=== PATIENT | female | born 1945 | race Caucasian/White ===

== ENCOUNTER 2019-07-04 10:26 | Outpatient (CLI) | payer MEDICARE, SELFPAY ==
--- NOTE | 2019-07-04 10:56 | EST_ITS ---
Patient Info Name: Chely De Los Santos Age: 74 years : 1945 Gender: Female Ht: 60 in Wt: 130 lbs BSA: 1.59 m2 Exam Date: 07/04/2019 11:16 AM Exam Location: [facility] Patient Status: Outpatient Admit Date: 07/04/2019 Staff Ordering Physician: Bird Bartholomew PA-C Airport Operations Specialist: Toby Sarabia RDCS, RT Attending Provider: JULIAN REDDING Referring Physician: Puma EASLEY; Exercise Technologist: Toby Sarabia RDCS RT Exercise Physician: Julian Redding DO Exam Type: CA stress echo Study Info Indications R06.02 - Shortness of breath Treadmill exercise stress echocardiogram is performed. Summary 1. 1. Negative Chadwick exercise stress test for ischemic ST changes by ECG criteria. 2. 2. Reduced functional capacity, achieving 6 METs of workload. 3. 3. Appropriate HR response to exercise. 4. 4. Appropriate HR recovery at 1 minute post exercise. 5. 5. Baseline hypertension. 6. 6. Negative stress echocardiogram for ischemia by wall motion analysis. 7. 7. Patient informed of the above results. Stress Echo Findings Left Ventricle Appropriate increase in LV endocardial thickening with systole. Appropriate augmentation of contractility with systole. No wall motion abnormality. Left Ventricle Normal LV systolic function, no wall motion abnormality. Protocol: Chadwick Stress ECG Details Stage: REST Duration (min): 2 min : 4 sec Speed (mph): 0.0 Grade (%): 0 HR (bpm): 58 SBP (mmHg): 181 DBP (mmHg): 88 METS: --- Stage: REST Duration (min): 12 min : 22 sec Speed (mph): 0.0 Grade (%): 0 HR (bpm): 65 SBP (mmHg): 181 DBP (mmHg): 88 METS: --- Stage: STAGE 1 Duration (min): 1 min : 0 sec Speed (mph): 1.7 Grade (%): 10 HR (bpm): 84 SBP (mmHg): 181 DBP (mmHg): 88 METS: --- Stage: STAGE 1 Duration (min): 2 min : 0 sec Speed (mph): 1.7 Grade (%): 10 HR (bpm): 92 SBP (mmHg): 181 DBP (mmHg): 88 METS: --- Stage: STAGE 1 Duration (min): 3 min : 0 sec Speed (mph): 1.7 Grade (%): 10 HR (bpm): 104 SBP (mmHg): 192 DBP (mmHg): 64 METS: --- Stage: STAGE 2 Duration (min): 1 min : 0 sec Speed (mph): 2.5 Grade (%): 12 HR (bpm): 117 SBP (mmHg): 192 DBP (mmHg): 64 METS: --- Stage: STAGE 2 Duration (min): 1 min : 10 sec Speed (mph): 0.0 Grade (%): 0 HR (bpm): 123 SBP (mmHg): 192 DBP (mmHg): 64 METS: --- Stage: RECOVERY Duration (min): 0 min : 49 sec Speed (mph): 0.0 Grade (%): 0 HR (bpm): 109 SBP (mmHg): 217 DBP (mmHg): 68 METS: --- Stage: RECOVERY Duration (min): 1 min : 49 sec Speed (mph): 0.0 Grade (%): 0 HR (bpm): 96 SBP (mmHg): 217 DBP (mmHg): 68 METS: --- Stage: RECOVERY Duration (min): 2 min : 49 sec Speed (mph): 0.0 Grade (%): 0 HR (bpm): 84 SBP (mmHg): 217 DBP (mmHg): 68 METS: --- Stage: RECOVERY Duration (min): 3 min : 40 sec Spe
== END 2019-07-04 10:27 | disposition home or self-care (01) ==
PROVIDERS: PCP Family Medicine; Visit Provider Physician Assistant
DX: I49.9 Cardiac arrhythmia, unspecified (principal); R06.02 Shortness of breath
CPT/HCPCS: 93351

== ENCOUNTER 2020-11-04 15:14 | Emergency (ER) | payer MEDICARE, SELFPAY ==
--- NOTE | ~2020-11-04 | XR_ITS ---
EXAMINATION: XR chest 2V DATE: 11/04/2020 16:07 INDICATION: Bradycardia and heart palpitations TECHNIQUE: PA and lateral views of the chest are obtained. COMPARISON: 11/13/2016 FINDINGS: The lungs are free of acute opacities. There is no pleural effusion or pneumothorax. The ca rdiomediastinal silhouette is normal. There is moderate thoracic spondylosis. There are changes of po sterior thoracolumbar fusion. Calcified breast implants are noted. IMPRESSION: 1. No acute cardiopulmonary abnormality. Reviewed, dictated and finalized at location A.
[2020-11-04 15:38] VITALS: BP 148/123; PULSE 87; RESP 13; TEMP 36.8; O2SAT 98
--- NOTE | 2020-11-04 15:46 | ECG_ITS ---
Measurements Intervals Walsh Rate: 77 P: 83 OK: 137 QRS: 29 QRSD: 74 T: 64 QT: 334 QTc: 380 Interpretive Statements SINUS RHYTHM VENTRICULAR BIGEMINY CANNOT RULE OUT SEPTAL INFARCT, AGE INDETERMINATE BORDERLINE ST-T WAVE ABNORMALITY- HIGH LATERAL LEADS BASELINE ARTIFACT- I, III, AVR, AVL ABNORMAL ECG Electronically Signed On 11-04-2020 15:57:41 CDT by Armando Horowitz D.O.
[2020-11-04 15:53] LABS: Basophils Absolute Auto 0.1 K/mm3 (0.0-0.1); Basophils Percent Auto 0.9 % (0.2-1.2); Eosinophils Absolute Auto 0.2 K/mm3 (0-0.3); Eosinophils Percent Auto 2.4 % (0-4.4); Hematocrit 43.7 % (37.0-47.0); Hemoglobin 14.1 g/dL (12.0-15.0); Immature Granulocyte Absolute 0.01 K/mm3 (0.00-0.031); Immature Granulocyte Percent A 0.2 % (0-0.5); Lymphocytes Absolute Auto 1.63 K/mm3 (0.9-3.2); Lymphocytes Percent Auto 24.7 % (18.3-44.2); Mean Corpuscular HGB Conc 32.3 g/dl (32-36); Mean Corpuscular Hemoglobin 29.7 pg (26-34); Mean Corpuscular Volume 92.2 fl (80-100); Mean Platelet Volume 10.7 fl (7.4-10.4); Monocytes Absolute Auto 0.6 K/mm3 (0.1-0.6); Monocytes Percent Auto 9.3 % (2.6-8.5); Neutrophils Absolute Auto 4.1 K/mm3 (1.3-6.7); Neutrophils Percent Auto 62.5 % (45.5-73.1); Platelet Count Result 229 k/mm3 (150-375); Red Blood Count 4.74 M/mm3 (4.2-5.4); Red Cell Distribution Width 13.4 % (11.5-14.5); White Blood Count 6.6 K/mm3 (4.5-10.0)
[2020-11-04 16:03] LABS: Anion Gap 9 mmol/L (8-16); Blood Urea Nitrogen 12 mg/dL (7-17); Calcium 9.3 mg/dL (8.4-10.2); Carbon Dioxide 27 mmol/L (22-30); Chloride 106 mmol/L (98-107); Estimated CRCL calculation 33 ml/min; Estimated Glomerular Filt Rate > 60; Glucose 130 mg/dL (65-110); Magnesium 2.1 mg/dL (1.6-2.3); Potassium 4.2 mmol/L (3.4-5.0); Sodium 142 mmol/L (137-145)
--- NOTE | 2020-11-04 17:04 | ED.WEAKNESS ---
HPI - Weakness General Chief complaint: Weakness Stated complaint: low hr, fatigue Time Seen by Provider: 11/04/20 15:22 History of Present Illness HPI Narrative: Patient is a 75-year-old female who presents ER with reports of irregular heartbeat. Reports she was seen by her nurse for her psychiatrist who told her that her heart rate was really low. Another doctor who told her this the other day and they urged her to seek medical evaluation. She has no chest pain or shortness of breath. She has no dizziness lightheadedness. She reports she has had fatigue over the last year and has seen the PA of her primary care doctor in last couple months for this. Patient is without any other complaints at this time. Related Data Home Medications Medication Instructions Recorded Confirmed aripiprazole 10 mg tablet 10 mg PO DAILY 04/07/19 08/12/20 Allergies Allergy/AdvReac Type Severity Reaction Status Date / Time house dust Allergy Unknown sneezing Verified 11/04/20 15:44 mold Allergy Unknown sneezing Verified 11/04/20 15:44 morphine Allergy Unknown paranoid Verified 11/04/20 15:44 Sulfa (Sulfonamide Allergy Unknown Skin Verified 11/04/20 15:44 Antibiotics) Reaction Review of Systems Review of Systems: All systems reviewed & are unremarkable except as noted in HPI and below Constitutional: Constitutional: Denies chills, Reports fatigue and Denies fever(s) ENT: Denies nasal congestion and Denies sore throat Cardiovascular: Cardiovascular: Denies chest pain, Denies rapid heart rate, Denies radiating jaw, neck or arm pain and Reports slow heart rate Respiratory: Respiratory: Denies cough and Denies dyspnea Gastrointestinal: Gastrointestinal: Denies nausea and Denies vomiting Neurologic: Denies headache(s), Denies focal weakness and Denies numbness [facility] Past Medical History Medical History (Updated 11/04/20 @ 17:12 by Roc Ayala MD) Bigeminy Dyslipidemia Murmur, cardiac Unspecified episodic mood disorder Surgical History Surgical History (Updated 11/04/20 @ 17:08 by Roc Ayala MD) History of back surgery Family History Family History Father Diabetes mellitus Family history of elevated blood lipids, Onset Age: 72 Family history of cardiovascular disease, Onset Age: 72 Cerebrovascular accident Mother Patient's mother is in good health Sibling Family history of elevated blood lipids Cerebrovascular accident Grandparent Cerebrovascular accident Other Family history of gout Social History Social History Smoking status: Former smoker Second hand tobacco smoke exposure: Yes Smoking end date: 02/05/05 Alcohol intake: never Exam Narrative: GENERAL: Well-appearing, well-nourished, and in no acute distress. HEAD: Normocephalic, atraumatic. EYES: PERRL and EOMI. CHEST: Clear to auscultation. No respiratory distress. HEART: Regular rate and rhythm with occasional diarrhea. Murmur present consistent with aortic stenosis. Normal peripheral pulses. ABDOMEN: Soft, nontender, nondistended. EXTREMITIES: Normal range of motion. No edema. SKIN: Warm, dry, no rash. NEURO: Alert and oriented x3. PSYCH: Normal mood and affect. Course Course Emergency Course: Patient informed of results and given reassurance. Patient in bigeminy on her EKG. Recommend follow-up with her primary care physician. She may need repeat ultrasound since she has history of bicuspid aortic valve and has a murmur. Patient verbalized understanding this. Vital Signs Vital signs: Vital Signs Temperature 98.2 F 11/04/20 15:38 Pulse Rate 87 11/04/20 15:38 Respiratory Rate 11/04/20 15:38 Blood Pressure 148/123 H 11/04/20 15:38 Pulse Oximetry 98 11/04/20 15:38 Temperature 98.2 F 11/04/20 15:38 Pulse Rate 87 11/04/20 15:38 Respiratory Rate 11/04/20 15:38 Bloo
== END 2020-11-04 17:33 | disposition home or self-care (01) ==
PROVIDERS: Emergency Provider Emergency Medicine; PCP Family Medicine
DX: R00.8 Other abnormalities of heart beat (principal); E78.5 Hyperlipidemia, unspecified; F39 Unspecified mood [affective] disorder; Z87.891 Personal history of nicotine dependence; R94.31 Abnormal electrocardiogram [ECG] [EKG]
CPT/HCPCS: 36415; 71046; 80048; 83735; 85025; 93005; 99283

== ENCOUNTER 2020-12-04 13:40 | Emergency (ER) | payer MEDICARE, SELFPAY ==
--- NOTE | ~2020-12-04 | XR_ITS ---
EXAMINATION: XR ribs RT 2V w CXR 2V EXAM DATE: 12/04/2020 14:14 INDICATION: fell 2 days, posterior lower rib pain w/e bruising, hit wall. TECHNIQUE: Frontal projection of the upper right ribs, frontal projection of the lower right ribs, ob lique projection of the right ribs, frontal and lateral chest x-ray(s) for interpretation. Comparison is made to prior examination from 11/04/2020. FINDINGS: There is acute right 8th rib fracture with mild displacement posteriorly and another fractu re of this rib laterally which is completely displaced. The 9th rib is also fractured and displaced p osteriorly. Development of small to moderate right pleural effusion. Adjacent subsegmental atelectasi s. Breast implants with capsular retraction. Cardiomediastinal silhouette is normal. Thoracolumbar Nelson rrington rods, scoliosis. IMPRESSION: Acute right 8th, 9th rib fractures. Small to moderate right pleural effusion, adjacent at electasis. Reviewed, dictated and finalized at location A. IMPRESSION: Acute right 8th, 9th rib fractures. Small to moderate right pleural effusion, adjacent atelectasis.
[2020-12-04 13:41] VITALS: BP 188/108; PULSE 100; RESP 16; TEMP 36.6; O2SAT 97
--- NOTE | 2020-12-04 15:03 | ED.FALL ---
HPI - Fall General Chief Complaint: Fall Stated Complaint: FALL/RIB PAIN Time Seen by Provider: 12/04/20 13:53 Source: patient History of Present Illness HPI Narrative: Patient presents with right-sided rib pain. Patient reports she was drinking slipped and fell onto her right side striking a bedpost. She tried to manage her symptoms at home but continued to have right-sided posterior rib pain. Pain is sharp, constant, worse with moving and deep inspiration, does not radiate. She denies striking her head she denies any use of blood thinners. Related Data Home Medications Medication Instructions Recorded Confirmed aripiprazole 10 mg tablet 10 mg PO DAILY 11/16/20 11/16/20 Allergies Allergy/AdvReac Type Severity Reaction Status Date / Time house dust Allergy Unknown sneezing Verified 12/04/20 13:40 mold Allergy Unknown sneezing Verified 12/04/20 13:40 morphine Allergy Unknown paranoid Verified 12/04/20 13:40 Sulfa (Sulfonamide Allergy Unknown Skin Verified 12/04/20 13:40 Antibiotics) Reaction Review of Systems Review of Systems: CONSTITUTIONAL: Denies fever, chills, or sweats. EYES: Denies visual changes, redness, or discharge. ENT: Denies rhinorrhea, congestion, sore throat, or otalgia. CARDIOVASCULAR: Denies chest pain, palpitations, or edema. RESPIRATORY: Denies cough or dyspnea. GASTROINTESTINAL: Denies abdominal pain, nausea, vomiting, or diarrhea. GENITOURINARY: Denies dysuria or hematuria. SKIN: Denies rash or itching. MUSCULOSKELETAL: Denies joint pain, or myalgia. NEUROLOGIC: Denies headache, numbness, dizziness, or weakness. PSYCHIATRIC: Denies anxiety or depression. All systems reviewed & are unremarkable except as noted in HPI and below [facility] Past Medical History Medical History Bigeminy Dyslipidemia Murmur, cardiac Unspecified episodic mood disorder Surgical History Surgical History History of back surgery Family History Family History Father Diabetes mellitus Family history of elevated blood lipids, Onset Age: 72 Family history of cardiovascular disease, Onset Age: 72 Cerebrovascular accident Mother Patient's mother is in good health Sibling Family history of elevated blood lipids Cerebrovascular accident Grandparent Cerebrovascular accident Other Family history of gout Social History Social History Second hand tobacco smoke exposure: Yes Smoking end date: 02/05/05 Alcohol intake: never Substance use: current Substance use type: marijuana Gender identity (if verbalized by the patient): Female Exam Narrative: GENERAL: Well-appearing, well-nourished, and in no acute distress. HEAD: Normocephalic, atraumatic. EYES: PERRLA and EOMI. ENT: Nares clear, no rhinorrhea or epistaxis. Mucous membranes moist. NECK: Supple. No masses. No JVD CHEST: Clear to auscultation. No respiratory distress. No wheezes rales or rhonchi HEART: Regular rate and rhythm. No murmur heard. Normal peripheral pulses. BACK: Diffuse lower right-sided posterior tenderness in the thoracic area there is some ecchymosis and superficial abrasions in the area EXTREMITIES: Normal range of motion. No edema. SKIN: Warm, dry, no rash. NEURO: No focal deficits. Alert and oriented x3. PSYCH: Normal mood and affect. Course Reevaluation(s) Reevaluation #1: Imaging results reviewed with patient discussed importance of breathing exercises. Date: 12/04/20 Time: 15:05 Vital Signs Vital signs: Vital Signs Temperature 36.6 C 12/04/20 13:41 Pulse Rate 100 12/04/20 13:41 Respiratory Rate 16 12/04/20 13:41 Blood Pressure 188/108 H 12/04/20 13:41 Pulse Oximetry 97 12/04/20 13:41 Temperature 36.6 C 12/04/20 13:41 Pulse Rate 100 12/04/20 15:19 Respiratory Rat
[2020-12-04 15:19] VITALS: PULSE 100; RESP 16; O2SAT 97
== END 2020-12-04 15:20 | disposition home or self-care (01) ==
PROVIDERS: Emergency Provider Emergency Medicine; PCP Family Medicine
DX: S22.41XA Multiple fractures of ribs, right side, initial encounter for closed fracture (principal); E78.5 Hyperlipidemia, unspecified; Z87.891 Personal history of nicotine dependence; W01.190A Fall on same level from slipping, tripping and stumbling with subsequent striking against furniture, initial encounter
CPT/HCPCS: 71046; 71100; 99283

== ENCOUNTER 2020-12-28 13:39 | Outpatient (CLI) | payer MEDICARE, SELFPAY ==
--- NOTE | ~2020-12-28 | XR_ITS ---
XR chest 2V 12/28/2020 13:59 Indication: Rib fractures. Dyspnea. Procedure: PA and lateral views of the chest Comparison: 12/04/2020 Findings: Moderate right pleural effusion. Right basilar atelectasis. There are partially calcified b reast implants. Rib fractures not appreciated on the current study. No pneumothorax. No acute osseous abnormality. There are Narayan rods overlying the thoracic and lumbar spine. Impression: 1: Moderate right pleural effusion with underlying compressive atelectasis. No pneumothorax. Reviewed, dictated and finalized at location A. 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 No pneumothorax.
== END 2020-12-28 13:40 | disposition home or self-care (01) ==
LOC: ANHIMG 13:47
PROVIDERS: PCP Family Medicine; Visit Provider Physician Assistant
DX: S22.41XD Multiple fractures of ribs, right side, subsequent encounter for fracture with routine healing (principal); X58.XXXD Exposure to other specified factors, subsequent encounter; J90 Pleural effusion, not elsewhere classified
CPT/HCPCS: 71046

== ENCOUNTER 2021-01-31 13:55 | Outpatient (CLI) | payer MEDICARE, SELFPAY ==
--- NOTE | 2021-01-31 14:07 | ECHO_ITS ---
Patient Info Name: Chely De Los Santos Age: 75 years : 1945 Gender: Female Ht: 60 in Wt: 125 lbs BSA: 1.56 m2 HR: 66 bpm BP: 168 / 80 mmHg Heart Rhythm: Sinus Rhythm Technical Quality: Fair Exam Date: 01/31/2021 2:12 PM Exam Location: [facility] Patient Status: Outpatient Admit Date: 01/31/2021 Staff Ordering Physician: Bird Bartholomew PA-C Extension Course Coordinator: Bethanie Chun RDCS Attending Provider: Bird Bartholomew PA-C Referring Physician: Puma EASLEY; Exam Type: CA echo dop color flow w con Study Info Indications - Cardiac murmur, unspecified Complete two-dimensional, color flow and Doppler transthoracic echocardiogram is performed. Summary 1. Complete two-dimensional, color flow and Doppler transthoracic echocardiogram is performed. 2. Left ventricular chamber dimension is normal. 3. Ventricular septum is sigmoid shaped. No LVOT obstruction. 4. Left ventricular systolic function is normal, estimated at 60-65%. 5. There is mildly increased left ventricular wall thickness. 6. The left ventricular diastolic function is grade I diastolic dysfunction. 7. E/e' 14 is mildly elevated. 8. Left atrial chamber dimension is mildly enlarged. 9. There is severe aortic valve sclerosis. 10. There is severe aortic valve stenosis with a peak velocity of 324.09 cm/s, mean gradient of 22 mmHg, and aortic valve area of 0.85 cm2. 11. There is mild aortic valve regurgitation. 12. The mitral valve has mildly calcified annulus. 13. No pulmonary hypertension, estimated pulmonary arterial systolic pressure is 21 mmHg. Left Ventricle E/e' 14 is mildly elevated. Ventricular septum is sigmoid shaped. No LVOT obstruction. Left ventricular chamber dimension is normal. Left ventricular systolic function is normal, estimated at 60-65%. There is mildly increased left ventricular wall thickness. The left ventricular diastolic function is grade I diastolic dysfunction. Right Ventricle Right ventricular systolic function is normal and with a normal TAPSE 2.1 cm. Right ventricular chamber dimension is normal. Left Atria Left atrial chamber dimension is mildly enlarged. Right Atria Right atrial chamber dimension is normal. Aortic Valve The aortic valve is probable trileaflet. There is severe aortic valve sclerosis. There is severe aortic valve stenosis with a peak velocity of 324.09 cm/s, mean gradient of 22 mmHg, and aortic valve area of 0.85 cm2. There is mild aortic valve regurgitation. Pulmonic Valve There is no pulmonic regurgitation. Mitral Valve The mitral valve has mildly calcified annulus. There is no mitral valve stenosis. There is no mitral valve regurgitation. Tricuspid Valve There is no tricuspid valve regurgitation. No pulmonary hypertension, estimated pulmonary arterial systolic pressure is 21 mmHg. Pericardium/Pleural There is no pericardial effusion. Inferior Vena Cava Normal inferior vena cava with >50% collapse upon inspiration consistent with normal right atrial pressure, 5 mmHg. Aorta The aortic root size at the sinus of Valsalva is normal. Left Ventricular Outflow Tract Name Value Normal LVOT 2D LVOT Diameter 2.03 cm LVOT Doppler
== END 2021-01-31 13:56 | disposition home or self-care (01) ==
PROVIDERS: PCP Family Medicine; Visit Provider Physician Assistant
DX: R01.1 Cardiac murmur, unspecified (principal); I35.2 Nonrheumatic aortic (valve) stenosis with insufficiency
CPT/HCPCS: C8929

== ENCOUNTER 2021-03-07 13:27 | Outpatient (CLI) | payer MEDICARE, SELFPAY ==
--- NOTE | ~2021-03-07 | XR_ITS ---
EXAMINATION: XR ribs RT 2V w CXR 2V INDICATION: History of right pleural effusion post rib fracture TECHNIQUE: PA and lateral views of the chest and 3 views of the right ribs were obtained. COMPARISON: 12/28/2020 FINDINGS: There is no pleural effusion or pneumothorax. The lungs are free of acute opacities. The ca rdiomediastinal silhouette is normal. Healing right-sided rib fractures are noted. There are surgical changes in the thoracic and lumbar spine. Bilateral breast implants are noted. IMPRESSION: 1. Resolved right pleural effusion. No acute cardiopulmonary abnormality. 2. Healing right rib fractures. Reviewed, dictated and finalized at location B. 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
== END 2021-03-07 13:28 | disposition home or self-care (01) ==
LOC: ANHIMG 13:34
PROVIDERS: PCP Family Medicine; Visit Provider Physician Assistant
DX: S22.41XD Multiple fractures of ribs, right side, subsequent encounter for fracture with routine healing (principal)
CPT/HCPCS: 71046; 71100

== ENCOUNTER 2021-06-08 15:25 | Outpatient (CLI) | payer MEDICARE, SELFPAY ==
--- NOTE | ~2021-06-08 | US_ITS ---
EXAMINATION: US carotid duplex BI DATE: 06/08/2021 16:45 INDICATION: Severe aortic stenosis TECHNIQUE: Grayscale, color Doppler, and pulsed Doppler images of the cervical carotid arteries were obtained. The degree of vessel stenosis is placed in one of the following categories: normal, <50%, 5 0-69%, >=70% but less than near-occlusion, near-occlusion, or total occlusion. Note that percent sten osis relative to normal distal artery lumen diameter is indirectly measured from velocity measurement s as described by Jose Daniel, et al. Radiology 2003; 229:340-346. COMPARISON: None. FINDINGS: RIGHT: The right common carotid artery (CCA) peak systolic velocity (PSV) is 76 cm/s. The right internal car otid artery (ICA) PSV is 98 cm/s. The right ICA end-diastolic velocity (EDV) is 26 cm/s. The right IC A/CCA PSV ratio is 1.3. Grayscale and color Doppler images yield an estimate of <50% diameter reducti on from plaque in the ICA. The external carotid artery (ECA) PSV is 167 cm/s. There is antegrade flow in the right vertebral artery. LEFT: The left CCA PSV is 106 cm/s. The left ICA PSV is 133 cm/s. The left ICA EDV is 24 cm/s. The left ICA /CCA PSV ratio is 1.3. Grayscale and color Doppler images yield an estimate of 50-69% diameter reduct ion from plaque in the ICA. The ECA PSV is 143 cm/s. There is antegrade flow in the left vertebral ar darren. IMPRESSION: 1. <50% stenosis in the right internal carotid artery. 2. 50-69% stenosis in the left internal carotid artery. Reviewed, dictated and finalized at location A.
== END 2021-06-08 15:26 | disposition home or self-care (01) ==
PROVIDERS: PCP Family Medicine; Visit Provider Internal Medicine Cardiovascular Disease
DX: Z01.810 Encounter for preprocedural cardiovascular examination (principal); I35.0 Nonrheumatic aortic (valve) stenosis; E78.2 Mixed hyperlipidemia; G45.9 Transient cerebral ischemic attack, unspecified; I65.23 Occlusion and stenosis of bilateral carotid arteries
CPT/HCPCS: 93880

== ENCOUNTER 2022-01-18 14:39 | Outpatient (CLI) | payer MEDICARE, SELFPAY ==
[2022-01-18 23:44] LABS: Kit Draw Collected
== END 2022-01-18 14:40 | disposition home or self-care (01) ==
LOC: ANHGOSHLAB 14:41
PROVIDERS: PCP Family Medicine; Visit Provider Family Medicine
DX: M81.0 Age-related osteoporosis without current pathological fracture (principal); Z78.0 Asymptomatic menopausal state; Z11.59 Encounter for screening for other viral diseases
CPT/HCPCS: 36415

== ENCOUNTER → 2022-01-18 15:03 | Outpatient (CLI) | payer MEDICARE, SELFPAY ==
--- NOTE | ~2022-01-18 | XR_ITS ---
Right Knee Technique: AP, lateral, not, and sunrise views were obtained. Clinical History: Pain Findings: No fracture or dislocation is seen. There is minimal tricompartmental spurring, and probabl e mild medial compartment narrowing. Soft tissues are unremarkable. No joint effusion is seen. Impression: Mild degenerative change, as detailed above. No fracture or dislocation. Reviewed, dictated and finalized at location [] DIRECTOR/FINANCE Impression: Mild degenerative change, as detailed above. No fracture or dislocation.
== END ==
PROVIDERS: PCP Family Medicine; Visit Provider Family Medicine
DX: M25.561 Pain in right knee (principal)
CPT/HCPCS: 73564

== ENCOUNTER 2022-02-03 14:43 | Outpatient (CLI) | payer MEDICARE, SELFPAY ==
--- NOTE | ~2022-02-03 | DEXA_ITS ---
Bone Density Report Name: MELISSA SALAZAR Age: 76 Sex: Female Ethnicity: White Date of : 1945 Indication: osteopenia; monitoring treatment; height loss; prior fracture; postmenopausal Referring Provider: ALPHONSE RIVERA Study: Bone densitometry was performed. Exam Date: February 03, 2022 Accession number: [id number] Bone Density: Region BMD T-score Z-score Classification Femoral Neck (Left) 0.567 -2.5 -0.3 Osteoporosis Total Hip (Left) 0.642 -2.5 -0.5 Osteoporosis Femoral Neck (Right) 0.626 -2.0 0.2 Osteopenia Total Hip (Right) 0.677 -2.2 -0.2 Osteopenia Total Hip Mean 0.660 -2.4 -0.4 Osteopenia World Health Organization criteria for BMD impression classify patients as: Normal (T-score at or above -1.0), Osteopenia (T-score between -1.0 and -2.5), or Osteoporosis (T-score at or below -2.5). 10-year Fracture Risk: FRAX not reported because: Some T-score for Spine Total or Hip Total or Femoral Neck at or below -2.5 Treated for osteoporosis Previous Exams: Region Exam Age BMD T-score BMD Change BMD Change Date g/cm2 vs Baseline vs Previous Total Hip(Left) 02/03/2022 76 0.642 -2.5 -0.177 (-21.6% -0.083 (-11.5% 10/04/2016 71 0.725 -1.8 -0.094 (-11.4% -0.094 (-11.4% 07/10/2012 67 0.819 -1.0 Total Hip(Right) 02/03/2022 76 0.677 -2.2 -0.139 (-17.1% -0.102 (-13.0% 10/04/2016 71 0.779 -1.3 -0.038 (-4.6%) -0.038 (-4.6%) 07/10/2012 67 0.817 -1.0 *Denotes significance at 95% confidence level, LSC for Total Hip = 0.027 g/cm2 # Denotes dissimilar scan types or analysis methods Clinical Information Provided by Patient: Has had a low trauma fracture Is being treated for osteoporosis Patient maximum height was 62.5 Menopause Age: 3 No regular weight bearing exercise Does not regularly consume dairy products Drinks caffeinated beverages Onset of menses at age 11 Number of children 2 Impression: The patient has established osteoporosis, based on the Left Total Hip T-score and the existence of a prior fracture. The patient has risk factors, including: previous fracture. The BMD for the Total Hip(Left) decreased, changing by -11.5% since the last DXA exam. The BMD for the Total Hip(Right) decreased, changing by -13.0% since the last DXA exam. Discussion: SIGNIFICANT BONE LOSS OBSERVED. Adherence to therapy (including calcium and vitamin D intake) should be assessed. If compliance is not a factor, review management and exclusion of secondary causes of bone loss. It
== END 2022-02-03 14:44 | disposition home or self-care (01) ==
LOC: ANHIMG 14:44
PROVIDERS: PCP Family Medicine; Visit Provider Family Medicine
DX: M81.0 Age-related osteoporosis without current pathological fracture (principal); M85.851 Other specified disorders of bone density and structure, right thigh
CPT/HCPCS: 77080

== ENCOUNTER → 2022-12-05 11:31 | Outpatient (CLI) | payer MEDICARE, SELFPAY ==
--- NOTE | ~2022-12-05 | XR_ITS ---
XR hip RT 2V w AP pelvis DATE: 12/05/2022 11:43 INDICATION: Right hip pain. No injury. TECHNIQUE: AP pelvis. AP and lateral views of right hip. COMPARISON: None FINDINGS: Lumbar pedicle screws and rods and interbody spinal fusion at L4-5. Transitional fifth lumb ar vertebra with sacralization pseudoarthrosis on the right. Degenerative changes at the sacroiliac j oints. No pelvic fracture or bone destruction. There is osteopenia. Mild bilateral hip osteoarthritis, greater on the left. No fracture or dislocation, avascular necrosis or bone destruction of the right hip is detected. Osteopenia. 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
== END ==
PROVIDERS: PCP Family Medicine; Visit Provider Family Medicine
DX: M16.0 Bilateral primary osteoarthritis of hip (principal); M46.1 Sacroiliitis, not elsewhere classified; M43.26 Fusion of spine, lumbar region; M43.27 Fusion of spine, lumbosacral region
CPT/HCPCS: 73502

== ENCOUNTER 2023-03-09 14:19 | Outpatient (CLI) | payer MEDICARE, SELFPAY ==
--- NOTE | ~2023-03-09 | US_ITS ---
EXAMINATION: US carotid duplex BI DATE: 03/09/2023 15:21 INDICATION: Left carotid artery stenosis TECHNIQUE: Grayscale, color Doppler, and pulsed Doppler images of the cervical carotid arteries were obtained. The degree of vessel stenosis is placed in one of the following categories: normal, <50%, 5 0-69%, >=70% but less than near-occlusion, near-occlusion, or total occlusion. Note that percent sten osis relative to normal distal artery lumen diameter is indirectly measured from velocity measurement s as described by Jose Daniel, et al. Radiology 2003; 229:340-346. COMPARISON: None. FINDINGS: RIGHT: The right common carotid artery (CCA) peak systolic velocity (PSV) is 88 cm/s. The right internal car otid artery (ICA) PSV is 75 cm/s. The right ICA end-diastolic velocity (EDV) is 21 cm/s. The right IC A/CCA PSV ratio is 0.9. Grayscale and color Doppler images yield an estimate of <50% diameter reducti on from plaque in the ICA. The external carotid artery (ECA) PSV is 97 cm/s. There is antegrade flow in the right vertebral artery. LEFT: The left CCA PSV is 101 cm/s. The left ICA PSV is 135 cm/s. The left ICA EDV is 31 cm/s. The left ICA /CCA PSV ratio is 1.3. Grayscale and color Doppler images yield an estimate of 50-69% diameter reduct ion from plaque in the ICA. The ECA PSV is 93 cm/s. There is antegrade flow in the left vertebral art stevan. IMPRESSION: 1. <50% stenosis in the right internal carotid artery. 2. 50-69% stenosis in the left internal carotid artery. 3. Cardiac arrhythmia is present. Reviewed, dictated and finalized at location A. 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
== END 2023-03-09 14:20 | disposition home or self-care (01) ==
LOC: ANHIMG 14:20
PROVIDERS: PCP Family Medicine; Visit Provider Internal Medicine Cardiovascular Disease
DX: I65.23 Occlusion and stenosis of bilateral carotid arteries (principal); I49.9 Cardiac arrhythmia, unspecified; Z86.73 Personal history of transient ischemic attack (TIA), and cerebral infarction without residual deficits
CPT/HCPCS: 93880

== ENCOUNTER 2024-05-22 14:53 | Emergency (ER) | payer MEDICARE, SELFPAY ==
--- NOTE | ~2024-05-22 | CT_ITS ---
CT brain wo con Ordering provider: Martha Quarles History: 78 years Female with . head injury . Comparison: November 13, 2016 Technique: CT of the head without contrast. Radiation reduction technique utilized.The dose-length pr oduct was 605.33 mGy-cm. FINDINGS: BRAIN PARENCHYMA AND CSF SPACES: Mild leukoaraiosis and diffuse cortical atrophy. Mild atheromatous d isease. No midline shift, mass effect or hemorrhage. The brain parenchyma and CSF spaces are otherwi se normal. VISUALIZED PARANASAL SINUSES: Bilateral ethmoid sinus disease. MASTOIDS: Well aerated. BONES: The bones appear intact. SOFT TISSUES: Visualized nasopharynx is normal. Superficial soft tissues are normal. IMPRESSION: No acute intracranial findings. Reviewed, dictated and finalized at location A.
--- NOTE | ~2024-05-22 | XR_ITS ---
XR chest 1V Ordering provider: Martha Quarles History: 78 years Female with . dizzy . Comparison: March 07, 2021 FINDINGS: MEDIASTINUM: The cardiac silhouette is not enlarged. LUNGS: No infiltrates, effusions or pneumothorax. OTHER: No free air under the diaphragm. Postoperative changes in the spine. Valve prosthesis is seen in the heart. S-shaped scoliosis bilateral breast implants. IMPRESSION: No acute cardiopulmonary pathology. Reviewed, dictated and finalized at location A.
[2024-05-22 14:55] VITALS: BP 150/43; PULSE 112; RESP 16; TEMP 36.2; O2SAT 96
--- OUTSIDE RECORDS SUMMARY | 2024-05-22 14:56 | XMS_ITS | Clinical Summary ---
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
--- OUTSIDE RECORDS SUMMARY | 2024-05-22 14:56 | XMS_ITS | Clinical Summary ---
Author Organization [facility] [address] Address [address] [place] [address] Care Team Providers Care Forensic Toxicologist Name Role Phone Elsy Brumfield MD Primary Care Provider + Allergies Active Allergy Reactions Criticality Noted Date Comments Morphine Other (See comments) Medium 09/16/2014 paranoid Sulfa (Sulfonamide Antibiotics) Swelling Medium 05/02/2021 Medications atorvastatin (LIPITOR) 40 mg tablet Take 2 tablets (80 mg total) by mouth daily 02/28/2021 Active venlafaxine (EFFEXOR) 75 mg tablet Take 1 tablet (75 mg total) by mouth 2 (two) times a day 05/06/2021 Active ARIPiprazole (ABILIFY) 5 mg tablet Take 1 tablet (5 mg total) by mouth daily Active aspirin 81 mg chewable tablet TAKE 1 TABLET BY MOUTH EVERY DAY 90 tablet 3 09/04/2022 Active cholecalciferol (VITAMIN D-3) 50,000 unit capsule TAKE 1 CAPSULE BY MOUTH WEEKLY 12/04/2022 Active ibandronate (BONIVA) 150 mg tablet TAKE 1 TABLET (150MG) BY MOUTH MONTHLY 12/16/2022 Active losartan (COZAAR) 25 mg tablet Take 1 tablet (25 mg total) by mouth 2 (two) times a day 180 tablet 3 09/21/2023 Active Active Problems Problem Noted Date Diagnosed Date Essential hypertension 03/10/2024 Status post transcatheter ao rtic valve replacement (TAVR) using bioprosthesis 08/29/2021 Stenosis of left carotid artery 08/29/2021 Mixed hyperlipidemia 05/02/2021 Resolved Problems Problem Noted Date Diagnosed Date Resolved Date Nonrheumatic aortic valve stenosis 07/19/2021 03/10/2024 Severe aortic stenosis 05/02/202108/29 Overview (05/02/2021): Added automatically from request for surgery [id number] PVC's (premature ventricular contractions) 05/02/2021 03/10/2024 Encounters Date Type Department Care Team Description 03/10/2024 11:30 AM INVESTOR RELATIONS ASSOCIATE Office Visit [facility] [address] [place] [address] Rivas Paiz MD Mixed hyperlipidemia (Primary Dx); Status post transcatheter aortic valve replacement (TAVR) using bioprosthesis; Stenosis of left carotid artery; Essential hypertension from Last 3 Months Surgical History Surgery Date Site/Laterality Comments TONSILLECTOMY 02/05/1945 - 02/04/1946 SPINAL FUSION 02/05/1957 - 02/04/1958 age 32 & age 48 TRANSUMBILICAL AUGMENTATION MAMMAPLASTY 02/05/1975 - 02/05/1976 KNEE SURGERY 02/05/1989 - 02/04/1990 arthroscopy FRACTURE SURGERY Right ankle CATARACT EXTRACTION Bilateral CARDIAC CATHETERIZATION Medical History Medical History Date Comments Severe aortic stenosis Hypertension Hyperlipidemia Murmur Anxiety and depression Arthritis TIA (transient ischemic attack) Dyspnea on exertion Rib fractures right Family History Medical History Relation Name Comments Heart attack Brother 1 Heart disease Brother 1 Family history of cardiac disorder - (Added by TW Conv) Stroke Brother 2 Family history of cerebrovascular accident - (Added by TW Conv) Arthritis Father Family history of arthritis - (Added by TW Conv) Diabetes Father Family history of diabetes mellitus - (Added by TW Conv) Gout Father Family history of gout - (Added by TW Conv) Heart disease Father Family history of cardiac disorder - (Added by TW Conv) Stroke Father Family history of cerebrovascular accident - (Added by TW Conv) Heart disease Mother Family history of cardiac disorder - (Added by TW Conv) Stroke Mother Family history of cerebrovascular accident - (Added by TW Conv) Relation Name Status Comments Brother 1 Brother 2 Father (Age 71) Mother (Age 98) Social History Tobacco Use Types Packs/Day Years Used Date Smoking Tobacco: Former Cigarettes 1 967 - 2006 Smokeless Tobacco: Never Comments:Quit 15 years ago AUDIT-C Answer Date Recorded Q1: How often do you have a drink containing alcohol? Monthly or less 07/12/2021 Q2: How many drinks containi ng alcohol do you have on a typical day when you are drinking? 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 Gender Identity Not on file Sexual Orientation Not on file Obstetrics History Last Filed Vital Signs Vital Sign Reading Time Taken Comments Blood Pressure 139/82 03/10/2024 11:38 AM INVESTOR RELATIONS ASSOCIATE Pulse 52 03/10/2024 11:38 AM INVESTOR RELATIONS ASSOCIATE Temperature 37.3 C (99.2 F) 07/20/2021 12:05 PM CDT Respiratory Rate 18 08/29/2021 9:06 AM CDT Oxygen Saturation 98% 03/10/2024 11:38 AM INVESTOR RELATIONS ASSOCIATE Inhaled Oxygen Concentration - - Weight 55.8 kg (123 lb) 03/10/2024 11:38 AM INVESTOR RELATIONS ASSOCIATE Height 152.4 cm (5') 03/10/2024 11:38 AM INVESTOR RELATIONS ASSOCIATE Body Mass Index 24.02 03/10/2024 11:38 AM INVESTOR RELATIONS ASSOCIATE Plan of Treatment Health Maintenance Due Date Last Done Comments Depression Screening 1945 Osteoporosis Screening-Bone Density Scan 1945 DTaP/Tdap/Td Vaccine (1 - Tdap) 06/28/1954 Hepatitis B Screening 06/28/1961 Pneumococcal vaccine 65+ (1 of 1 - PCV) 06/28/1993 Zoster Vaccine (1 of 2) 06/28/1993 Well Visit 65+ 06/28/2008 Fall Risk Assessment 07/20/2022 07/20/2021 Covid-19 Vaccine ( - season) 2023 01/19/2021, 04/15/2020, 03/18/2020 Influenza Vaccine (#1) 2023 03/21/2021, 2020 Medical Devices Implanted Type Area Hospice Coordinator Device Identifier Shelf Expiration Date Model / Serial / Lot [employer] Vascular Device Clsr Perclose Prostyle Sut-Mediatd Closure-Repair Sys 94634-57 - [id number] Implanted:Qty: 1 on 07/19/2021 by Rivas Paiz MD at [facility] [employer] 1 2772-04 / / [employer] V[employer] Device Clsr Perclose Prostyle Sut-Mediatd Closure-Repair Sys [id number] - [id number] Implanted:Qty: 1 on 07/19/2021 by Rivas Paiz MD at [facility] [employer] 1 2772-04 / / [employer] Valve 23mm Aortic Marty 3 Commander Wilkerson Transcatheter Ultra Low Profile [id number] - [id number] - [id number] Implanted:Qty: 1 on 07/19/2021 by Rivas Paiz MD at [facility] [employer] 02/28/2024 [id number] / [id number] / Angio-Seal Vip 6fr Closere Device [id number] - [id number] Implanted:Qty: 1 on 07/19/2021 by Rivas Paiz MD at [facility] [employer] 03/07/2022 [id number] / / [id number] Insurance [employer] MEDICARE [facility] Address: [facility] [address] [place] [address] [facility] MEDICARE ADVANTAGE [facility] MEDICARE Address: [address] [address] [place] [address] [facility] Address: [address] [place] [address] Advance Directives For more information, please contact: [phone] * Full Code (Latest Code Status on File) Date Activated Date Inactivated Comments 05/25/2021 12:30 PM 05/25/2021 9:55 PM Care Teams Forensic Toxicologist Relationship Specialty Start Date End Date Elsy Brumfield MD PCP - General Family Medicine 02/27/22
--- OUTSIDE RECORDS SUMMARY | 2024-05-22 14:56 | XMS_ITS | Patient Health Record ---
Author Organization [facility] [employer] Address [address] [place] [address] Care Team Providers Care Straddle Truck Driver Name Role Phone ALPHONSE RIVERA MD Primary Care Provider Yoanna Parul Meyer Unavailable [phone] Migration, Provider Unavailable Unavailable Allergies Allergen (clinical drug ingredient) Drug/Non Drug Allergy documented on EMR Reaction Allergy Type Onset Date Status Substance with sulfonamide structure and antibacterial mechanism of action (substance) SULFA (SULFONAMIDE ANTIBIOTICS) (uncoded) Unknown Allergy 03/28/2023 Active morphine Morphine Unknown Drug Allergy 03/28/2023 Active Reason For Referral No Information Medications Medication SIG (Take, Route, Frequency, Duration) Notes Start Date End Date Status Venlafaxine HCl 75 MG TAKE 1 TABLET BY M OUTH TWICE DAILY 90 DAYS for 90 days Active Ibandronate Sodium 150 MG TAKE 1 TABLET BY MOUTH MONTHLY Oral for 90 Days Active ARIPiprazole 5 MG TAKE 1 TABLET BY ASHLEE TH EVERY DAY FOR 90 DAYS for 90 days Active Atorvastatin Calcium 40 MG TAKE 1 TABLET BY MOUTH EVERY DAY Oral for 90 Days Active Vitamin D3 1.25 MG (76254 UT) TAKE 1 CAPSULE BY MOUTH WEEKLY Oral for 84 Days Active Losartan Potassium 25 MG TAKE 1 TABLET ( 25 MG TOTAL) BY MOUTH DAILY. Oral for 90 Days Active Immunizations Vaccine Route Administration Date Status Comme nts Influenza, unspecified formulation Unknown 01/19/2021 A dministered Moderna Covid-19 Vaccine 1st dose Unknown 03/18/2020 Ad ministered Moderna Covid-19 Vaccine 1st dose Unknown 04/15/2020 Ad ministered Pfizer Biontech Covid-19 Vac cine 2nd dose Unknown 01/19/2021 Administered Social History Sex Assigned At : Social History Observation Description Sex Assigned At Female Vital Signs Heart Rate 72 /min 01/24/2024 Height-cm 154.94 cm 01/24/2024 Blood pressure diastolic 73 mm Hg 01/24/2024 Weight-kg 55.97 kg 01/24/2024 Height 61.00 in 01/24/2024 Blood pressure systolic 135 mm Hg 01/24/2024 Weight 123.4 lbs 01/24/2024 BMI 23.31 kg/m2 01/24/2024 Encounters Encounter Location Date Provider Diagnosis [place] [address] [facility] [address] [address] 07/26/2023 Thena Hali Bipolar 1 disorder F31.9 and Generalized anxiety disorder F41.[address] [address] 01/24/2024 Thena Hali Bipolar 1 disorder F31.9 ; Generalized anxiety disorder F41.1 and Benign essential HTN I10 [address] [address] 06/23/2023 Provider Migration [address] [address] 06/24/2023 Provider Migration Assessments Encounter Date Diagnosis (ICD Code) Assessment Notes Treatment Notes Treatment Clinical Notes Section Notes 07/26/2023 Generalized anxiety disorder (ICD-10 - F41.1) 07/26/2023 Bipolar 1 disorder (ICD-10 - F31.9) 01/24/2024 Generalized anxiety disorder (ICD-10 - F41.1) 01/24/2024 Bipolar 1 disorder (ICD-10 - F31.9) 01/24/2024 Benign essential HTN (ICD-10 - I10) Plan Of Treatment Next Appt Details Provider Name:Nisha Cordobajaguar , 07/21/2024 02:45:00 PM, [facility], [place] [address], [place], [address], Insurance Providers Payer Name Payer Address Payer Phone Subscriber Number Group Number Insured Name Patient Relationship to Insured Coverage Start Date Coverage End Date A[employer] Medicare Replaceme nt/Advant age - Ppo [address] [place] [address] [id number] MELISSA SALAZAR Self - patient is the insured Medical (General) History Medical History History ICD Code Problems: Bipolar affective disorder, cu rrent episode mixed Generalized anxiety disorder Mixed bipolar I disorder in partial vinnie ssion Moderate mixed bipolar I disorder Primary insomnia , Surgical History Surgery Date(Month/Year) Procedure on ankle (543152672) 4 pins an d 2 screws 1993 Operative procedure on knee (9857473) 19 90 Spinal fusion for scoliosis (852780911) revision and thoracic to pelvis 1993 Spinal fusion for scoliosis (192345455) total thoracic in 1957 Spinal fusion for scoliosis (051595779) with [place] rods [id number] Xcapsl ctrc rmvl cplx wo ecp (28435) 201 3 Insertion of bilateral breast prostheses (59463280) 1975
--- OUTSIDE RECORDS SUMMARY | 2024-05-22 14:56 | XMS_ITS ---
Author Organization [facility] Address [address] [place], [place] [id number] Care Team Providers Care Abrasive Wheel Molder Name Role Phone Elsy Brumfield Unavailable Unavailable ALYSSIA WETZEL Unavailable [phone] REASON FOR VISIT The patient has a hammertoe of her 2nd toe of the left foot that has been present for many years and not caused too many issues. Over the past several weeks, she has intense pain on the bottom of herleft foot in the ball of the foot. It feels like she is walking on a rock or that her bones are protruding out Immunizations Vaccine Route Administration Date Status Comme nts Influenza, high dose seasonal Unknown 07/30/2023 Refuse d Pneumococcal conjugate PCV 13 Unknown 07/30/2023 Refuse d Social History Tobacco Use: Social History Observation Description Date Details (start date - stop date) Unknown if ever smoked NA - NA Tobacco Control (Standard) Question Answer Notes Tobacco use: Unknown if ever smoked Vital Signs Height 7.5 in 07/30/2023 Weight 122 lbs 07/30/2023 BMI 1524.73 kg/m2 07/30/2023 Height-cm 19.05 cm 07/30/2023 Weight-kg 55.34 kg 07/30/2023 Encounters Encounter Location Date Provider Diagnosis [facility] [address] [place], [place] [id number] 07/30/2023 ALYSSIA WETZEL Other hammer toe(s) (acquired), left foot M20.42 ; Acquired keratosis [keratoderma] palmaris et plantaris L85.1 ; Metatarsalgia, left foot M77.42 and Left foot pain M79.672 Assessments Encounter Date Diagnosis (ICD Code) Assessment Notes Treatment Notes Treatment Clinical Notes Section Notes 07/30/2023 Other hammer toe(s) (acquired), left foot (ICD-10 - M20.42) Hammertoe Deformity: Discussed various treatments for hammer toes with the patient . Discussed conservative care consisting of padding, wider shoes, anti-inflammatorie s, and orthotics. Discussed surgical treatment options and answered all questions about the intra-operative and post-operative treatment course. 07/30/2023 Acquired keratosis [keratoderma] palmaris et plantaris (ICD-10 - L85.1) A total of 2 corns or calluses, as described in the note above, were cut and pared utilizing a #15 blade. Emollient: Recommend that the patient use an emollient such as xwmk-nan-cefgveo Eucerin cream, Vanicream, or other lotion to the affected area. 07/30/2023 Metatarsalgia, left foot (ICD-10 - M77.42) Metatarsalgia: I discussed anti-inflammatory treatment options and various means of immobilization with the patient. I educated the patient on icing and stretching, supportive shoegear, and the use of orthotic devices and bracing. Spenco: Dispensed Spenco padded inserts to the patient and educated the patient on their use. 07/30/2023 Left foot pain (ICD-10 - M79.672) Plan Of Treatment Treatment Notes Assessment Notes Other hammer toe(s) (acquired), left moni t Hammertoe Deformity: Discussed various treatments for hammer toes with the patient . Discussed conservative care consisting of padding, wider shoes, anti-inflammatories, and orthotics. Discussed surgical treatment options and answered all questions about the intra-operative and post-operative treatment course. Acquired keratosis [keratode rma] palmaris et plantaris A total of 2 corns or calluses, as described in the note above, were cut and pared utilizing a #15 blade. Emollient: Recommend that the patient use an emollient such as uvbg-fmm-pfbaokc Eucerin cream, Vanicream, or other lotion to the affected area. Metatarsalgia, left foot Metatarsalgia: I discussed anti-inflammatory treatment options and various means of immobilization with the patient. I educated the patient on icing and stretching, supportive shoegear, and the use of orthotic devices and bracing. Spenco: Dispensed Spenco padded inserts to the patient and educated the patient on their use. Next Appt Details Follow Up: 3 Months, Reason: See how debridement, spenco, and supportive shoes helped Progress Notes * MELISSA SALAZARDOB:1945 (78 yo F)Acc No.[id number]:07/30/2023 Progress Notes Patient: MELISSA FRASER Provider: Jn Wetzel DPM :1945 A ge:78 Y S ex:Female Date:07/30/2023 Address:[facility] [address] [place], [id number] Subjective: * Chief Complaints: * 1 . The patient has a hammertoe of her 2nd toe of the left foot that has been present for many years and not caused too many issues. Over the past several weeks, she has intense pain on the bottom of her left foot in the ball of the foot. It feels like she is walking on a rock or that her bones are protruding out. * HPI: H PI: New Complaint P atient presents for a new patient consultation., Patient complains of an issue to left foot. Patient states it feels like there is a bone sticking out on the bottom. Patient states it is painful to step on. , Duration of problem is 2-3 months. , Patient denies any injury., MA: . * ROS: G eneral / Constitutional: Patient denies c hills, fever, weakness, night sweats. M usculoskeletal: Patient denies c hildhood foot problems, weakness. P atient complains of h ammertoes, joint pain. P eripheral Vascular: Patient denies u lceration of feet, cold extremities. ? S kin: Patient denies u lcerations, discoloration. ? N eurologic: Patient denies b alance difficulty, confusion, difficulty speaking, dizziness. * Medical History: * Social History: T obacco Use: T obacco Control (Standard) T obacco use: U nknown if ever smoked. * Medications: N one Objective: * Vitals: S hoe Size: 7.5, Wt: 122 lbs, Wt-k.34 kg, Ht: 7.5 in, Ht-cm: 19.05 cm, BMI: 1524.73 Index, Body Surface Area: 0.54. * Examination: C onstitutional: Constitutional T he patient is awake, alert, well developed, well groomed and well nourished.. D ermatologic: Skin findings: S kin is warm, dry, supple with no breaks in the skin.. Hypertrophic / hyperkeratotic lesion: p lantar aspect of the left 3rd metatatarsal head, dorsal aspect of the left 2nd digit. V ascular: Dorsalis pedis pulse: 2 /4, bilateral. Posterior tibial pulse: 2 /4, bilaterally. Capillary refill: l ess than 3 seconds. Edema: N o edema, bilateral. N eurologic: Gross sensation G ross sensation is intact to light touch..? M usculoskeletal: Muscle Strength M uscle strength is 5/5 in regards to dorsiflexion, plantarflexion, inversion, and eversion in bilateral lower extremities.. Pain on palpation p lantar aspect of the left 3rd metatarsal. Hammertoes D orsally contracted digits 2-5 bilateral. The deformity is rigid and nonreducible. The 2nd digit is the most contracted. ? Assessment: * Assessment: 1. O ther hammer toe(s) (acquired), left foot - M20.42 (Primary) 2 . A cquired keratosis [keratoderma] palmaris et plantaris - L85.1 3 . M etatarsalgia, left foot - M77.42 4 . L eft foot pain - M79.672 Plan: * Treatment: 2. A cquired keratosis [keratoderma] palmaris et plantaris Notes: A total of 2 corns or calluses, as described in the note above, were cut and pared utilizing a #15 blade. Emollient: Recommend that the patient use an emollient such as rgps-zfi-lhplegm Eucerin cream, Vanicream, or other lotion to the affected area. 3. M etatarsalgia, left foot Notes: Metatarsalgia: I discussed anti-inflammatory treatment options and various means of immobilization with the patient. I educated the patient on icing and stretching, supportive shoegear, and the use of orthotic devices and bracing. Spenco: Dispensed Spenco padded inserts to the patient and educated the patient on their use. * Immunizations: Influenza, high dose seasonal (Not administered - Refused: Patient decision) Pneumococcal conjugate PCV 13 (Not administered - Refused: Patient decision) ???Immunization record has been reviewed and updated. * Follow Up: 3 Months (Reason: See how debridement, spenco, and supportive shoes helped) * Billing Information: * Visit Code: 59324 Office Visit, New Pt., Level 3. * Procedure Codes: * Electronic signature of ALYSSIA WETZEL DPM on 05/22/2024 at 02:56 PM CDT Sign off status: Pending * Provider: Jn Wetzel DPM Date: 0 07/30/2023 Generated for Dada harvey/Anna/Ryderitting on: 0 05/22/2024 02:56 PM CDT History and Physical Notes * HPI (History of Present Illness) Category Sub-Category Detail Notes Category Not es HPI New Complaint Patient presents for a new patient consultation., Patient complains of an issue to left foot. Patient states it feels like there is a bone sticking out on the bottom. Patient states it is painful to step on. , Duration of problem is 2-3 months. , Patient denies any injury., MA: Examination Category Sub-Category Detail Notes Category Not es Dermatologic Skin findings: Skin is warm, dr y, supple with no breaks in the skin. Hypertrophic / hyperkeratotic lesion: pl johnathan aspect of the left 3rd metatatarsal head, dorsal aspect of the left 2nd digit Neurologic Gross sensation Gross sensation is intact to light touch. Vascular Dorsalis pedis pulse: 2/4, bilateral Edema: No edema, bilateral Capillary refill: less than 3 seconds Posterior tibial pulse: 2/4, bilaterally Musculoskeletal Muscle Strength Muscle strength is 5/5 in regards to dorsiflexion, plantarflexion, inversion, and eversion in bilateral lower extremities. Pain on palpation plantar aspect of th e left 3rd metatarsal Hammertoes Dorsally contracted digits 2-5 bilateral. The deformity is rigid and nonreducible. The 2nd digit is the most contracted Constitutional Constitutional The patient is a wake, alert, well developed, well groomed and well nourished.
--- OUTSIDE RECORDS SUMMARY | 2024-05-22 14:56 | XMS_ITS | Patient Health Record ---
Author Organization [facility] Address [address] [place], [place] [id number] Care Team Providers Care Temporary Staff Accountant Name Role Phone Elsy Brumfield Unavailable Unavailable SNOOK ALYSSIA Unavailable [phone] Allergies Allergen (clinical drug ingredient) Drug/Non Drug Allergy documented on EMR Reaction Allergy Type Onset Date Status morphine Morphine Unknown Drug Allergy Active Reason For Referral No Information Immunizations Vaccine Route Administration Date Status Comme nts Pneumococcal conjugate PCV 13 Unknown 07/30/2023 Refuse d Influenza, high dose seasonal Unknown 07/30/2023 Refuse d Social History Tobacco Use: Social History Observation Description Date Details (start date - stop date) Unknown if ever smoked NA - NA Tobacco Control (Standard) Question Answer Notes Tobacco use: Unknown if ever smoked Vital Signs Height-cm 19.05 cm 07/30/2023 Weight-kg 55.34 kg 07/30/2023 Height 7.5 in 07/30/2023 Weight 122 lbs 07/30/2023 BMI 1524.73 kg/m2 07/30/2023 Encounters Encounter Location Date Provider Diagnosis [facility] [address] [place] [id number] 07/30/2023 ALYSSIA SNOOK Other hammer toe(s) (acquired), left foot M20.42 ; Acquired keratosis [keratoderma] palmaris et plantaris L85.1 ; Metatarsalgia, left foot M77.42 and Left foot pain M79.672 [facility] [address] [place], [place] [id number] 10/29/2023 ALYSSIA SNOOK Other eccrine sweat disorders L74.8 ; Metatarsalgia, left foot M77.42 and Left foot pain M79.672 [facility] [address] [place], [place] [phone] 11/12/2023 ALYSSIA WETZEL Other eccrine sweat disorders L74.8 ; Metatarsalgia, left foot M77.42 and Left foot pain M79.672 Assessments Encounter Date Diagnosis (ICD Code) Assessment Notes Treatment Notes Treatment Clinical Notes Section Notes 07/30/2023 Acquired keratosis [keratoderma] palmaris et plantaris (ICD-10 - L85.1) A total of 2 corns or calluses, as described in the note above, were cut and pared utilizing a #15 blade. Emollient: Recommend that the patient use an emollient such as [id number] Eucerin cream, Vanicream, or other lotion to the affected area. 07/30/2023 Other hammer toe(s) (acquired), left foot (ICD-10 - M20.42) Hammertoe Deformity: Discussed various treatments for hammer toes with the patient . Discussed conservative care consisting of padding, wider shoes, anti-inflammatorie s, and orthotics. Discussed surgical treatment options and answered all questions about the intra-operative and post-operative treatment course. 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 The patient was given after care instructions. Follow up in two weeks to debride and re-ablate as needed. 10/29/2023 Metatarsalgia, left foot (ICD-10 - M77.42) Metatarsalgia: I discussed anti-inflammatory treatment options and various means of immobilization with the patient. I educated the patient on icing and stretching, supportive shoegear, and the use of orthotic devices and bracing. I explained that as long as there is pressure on the metatarsals, the pain and callus and porokeratosis will reform. 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 No evidence of porokeratosis noted. Patient advised to monitor this area, as well as to use emollients and keep pressure off this area with padding, inserts, or orthotics. 11/12/2023 Metatarsalgia, left foot (ICD-10 - M77.42) Metatarsalgia: I discussed anti-inflammatory treatment options and various means of immobilization with the patient. I educated the patient on icing and stretching, supportive shoegear, and the use of orthotic devices and bracing. I explained that as long as there is pressure on the metatarsals, the pain and callus and porokeratosis will reform. I explained that inserts, arch supports, and orthotics are the best way to offload this area 11/12/2023 Left foot pain (ICD-10 - M79.672) 10/29/2023 Left foot pain (ICD-10 - M79.672) 07/30/2023 Metatarsalgia, left foot (ICD-10 - M77.42) [...] pain (ICD-10 - M79.672) Plan Of Treatment No Information Insurance Providers Payer Name Payer Address Payer Phone Subscriber Number Group Number Insured Name Patient Relationship to Insured Coverage Start Date Coverage End Date [id number] [id number] [id number] MELISSA SALAZAR Self - patient is the insured
--- OUTSIDE RECORDS SUMMARY | 2024-05-22 14:56 | XMS_ITS ---
Author Organization [facility] Address [address] [place], [place] [phone] Care Team Providers Care Rope Rider Name Role Phone Lorenzo Brumfieldelle Unavailable Unavailable ALYSSIA WETZEL Unavailable [phone] Allergies Allergen (clinical drug ingredient) Drug/Non Drug Allergy documented on EMR Reaction Allergy Type Onset Date Status morphine Morphine Unknown Drug Allergy Active REASON FOR VISIT The patient reports that the chemical ablation was not only tolerated well, but the pain is greatlyimproved. She is pleased with her result Social History Tobacco Use: Social History Observation Description Date Details (start date - stop date) Unknown if ever smoked NA - NA Tobacco Control (Standard) Question Answer Notes Tobacco use: Unknown if ever smoked Encounters Encounter Location Date Provider Diagnosis [facility] [address] [place], [place] [phone] 11/12/2023 ALYSSIA WETZEL Other eccrine sweat disorders L74.8 ; Metatarsalgia, left foot M77.42 and Left foot pain M79.672 Assessments Encounter Date Diagnosis (ICD Code) Assessment Notes Treatment Notes Treatment Clinical Notes Section Notes 11/12/2023 Other eccrine sweat disorders (ICD-10 - [...] 11/12/2023 Left foot pain (ICD-10 - M79.672) Plan Of Treatment Treatment Notes Assessment Notes Other eccrine sweat disorders Porokeratosis Resolved: The nonviable tissue was sharply debrided down to normal healthy appearing skin. No evidence of porokeratosis noted. Patient advised to monitor this area, as well as to use emollients and keep pressure off this area with padding, inserts, or orthotics. Metatarsalgia, left foot Metatarsalgia: I discussed anti-inflammatory [...] the best way to offload this area Next Appt Details Follow Up: prn, Reason: Progress Notes * HINA SALAZARJAMELDOB:1945 (78 yo F)Acc No.[id number]:11/12/2023 Patient: MELISSA FRASER Provider: Jn Wetzel DPM :1945 A ge:78 Y S ex:Female Date:11/12/2023 Address:[facility] [place] [address] [facility] [facility] Subjective: * Chief Complaints: * 1 . The patient reports that the chemical ablation was not only tolerated well, but the pain is greatly improved. She is pleased with her result. * HPI: H PI: Follow Up Visit P atient presents for follow-up visit for porokeratosis, left. Patient states she has not had any pain since previous visit and her foot feels a lot better. MA: LB. * ROS: G eneral / Constitutional: Patient [...] if ever smoked. * Medications: N one * Allergies: M orphine. Objective: * Vitals: * Examination: C onstitutional: Constitutional T he [...] ? Assessment: * Assessment: 1. O ther eccrine sweat disorders - L74.8 (Primary) 2 . M etatarsalgia, left foot - M77.42 3 . L eft foot pain - M79.672 Plan: * Treatment: 2. M etatarsalgia, left foot Notes: Metatarsalgia: I [...] the best way to offload this area * Follow Up: p rn * Billing Information: * Visit Code: 34393 Office Visit, Est Pt., Level 3. * Procedure Codes: * Electronic signature of ALYSSIA WETZEL DPM on 05/22/2024 at 02:56 PM CDT Sign off status: Pending * Provider: Jn Wetzel DPM Date: 1 Generated for Dada harvey/Anna/Mariaa on: 0 05/22/2024 02:56 PM CDT History and Physical Notes * HPI (History of Present Illness) Category Sub-Category Detail Notes Category Not es HPI Follow Up Visit Patient presents for follow-up visit for porokeratosis, left. Patient states she has not had any pain since previous visit and her foot feels a lot better. MA: LB Examination Category Sub-Category Detail Notes Category Not [...]
--- OUTSIDE RECORDS SUMMARY | 2024-05-22 14:56 | XMS_ITS | Encounter Summary ---
Author Organization [facility] Address 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
--- OUTSIDE RECORDS SUMMARY | 2024-05-22 14:56 | XMS_ITS | Referral Summary ---
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 [employer]MS Office Visit [facility] [address] [facility] [address] [place] [address] Rivas Paiz MD Mixed hyperlipidemia (Primary Dx); Status post transcatheter aortic valve replacement (TAVR) using bioprosthesis; Stenosis of left carotid artery; Essential hypertension from Last 3 Months Allergies Active Allergy Reactions Criticality Noted Date [...] (05/02/2021): Added automatically from request for surgery [id number] PVC's (premature ventricular contractions) 05/02/2021 03/10/2024 Social History Tobacco Use Types Packs/Day Years [...] on file Legal Sex Female 7:17 PM 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 [employer] Gender Identity Not on file Sexual Orientation Not on file Last Filed Vital Signs Vital Sign Reading Time Taken Comments Blood Pressure 139/82 03/10/2024 11:38 AM 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 Pulse 52 03/10/2024 11:38 AM 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 Temperature 37.3 C (99.2 F) 07/20/2021 12:05 PM CDT Respiratory Rate 18 08/29/2021 9:06 AM CDT Oxygen Saturation 98% 03/10/2024 11:38 AM 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 PAN FORMS Inhaled Oxygen Concentration - - Weight 55.8 kg (123 lb) 03/10/2024 11:38 AM 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 [employer]MS Height 152.4 cm (5') 03/10/2024 11:38 AM 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 [employer]MS Body Mass Index 24.02 03/10/2024 11:38 AM 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 [employer]MS Plan of Treatment Not on file Medical Devices Implanted Type Area Sheet Rock Layer Device Identifier Shelf Expiration Date Model / Serial / Lot [employer] V[employer] Device Clsr Perclose Prostyle Sut-Mediatd Closure-Repair Sys 07580-36 - [id number] Implanted:Qty: 1 on 07/19/2021 by Rivas Paiz MD at [facility] [employer] 1 27704-07 / / [employer] V[employer] Device Clsr Perclose Prostyle Sut-Mediatd Closure-Repair Sys 37640-25 - [id number] Implanted:Qty: 1 on 07/19/2021 by Rivas Paiz MD at [facility] [employer] 1 2772-04 / / [employer] Valve 23mm Aortic Marty 3 Commander Wilkerson Transcatheter Ultra Low Profile [id number] - [id number] - [id number] Implanted:Qty: 1 on 07/19/2021 by Rivas Paiz MD at [facility] [employer] 02/28/2024 [id number] / [id number] / Angio-Seal Vip 6fr Closere Device [id number] - [id number] Implanted:Qty: 1 on 07/19/2021 by Rivas Paiz MD at [facility] 03/07/2022 [id number] / / [id number] Insurance [facility] MED[facility] UHC MEDICARE ADVANTAGE [facility] MED[facility] Advance Directives For more information, please contact: [phone] * Full Code (Latest Code Status on File) Date Activated Date Inactivated Comments 05/25/2021 12:30 PM 05/25/2021 9:55 PM Care Teams Real Property Appraiser Relationship Specialty Start Date End Date Elsy Brumfield MD PCP - General Family Medicine 02/27/22
--- OUTSIDE RECORDS SUMMARY | 2024-05-22 14:57 | XMS_ITS ---
Author Organization [facility] Address [address] [place], [place] [phone] Care Team Providers Care Drink Waiter Name Role Phone Elsy Brumfield Unavailable Unavailable ALYSSIA WETZEL Unavailable [phone] Allergies Allergen (clinical drug ingredient) Drug/Non Drug Allergy documented on EMR Reaction Allergy Type Onset Date Status morphine Morphine Unknown Drug Allergy Active REASON FOR VISIT The patient returns with a painful area on the bottom of her left foot. She has not worn the inserts because they are not convenient and feels that athletic shoes provide enough support. The last debridement gave her 4 weeks of relief but it came back again Encounters Encounter Location Date Provider Diagnosis [facility] [facility] [address] [place], [place] [phone] 10/29/2023 ALYSSIA WETZEL Other eccrine sweat disorders L74.8 ; Metatarsalgia, left foot M77.42 and Left foot pain M79.672 Assessments Encounter Date Diagnosis (ICD Code) Assessment Notes Treatment Notes Treatment Clinical Notes Section Notes 10/29/2023 Other eccrine sweat disorders (ICD-10 - [...] the best way to offload this area 10/29/2023 Left foot pain (ICD-10 - M79.672) Plan Of Treatment Treatment Notes Assessment Notes Other eccrine sweat disorders Porokeratosis: The lesions were debrided to normal appearing skin and then chemically ablated with pyrogallic acid and covered with an occlusive dressing. The patient was given after care instructions. Follow up in two weeks to debride and re-ablate as needed. Metatarsalgia, left foot Metatarsalgia: I discussed anti-inflammatory [...] this area Next Appt Details Follow Up: 2 Weeks, Reason: Debride and ablate porokeratosis Progress Notes * HINA SALAZARJAMELDOB:1945 (78 yo F)Acc No.[id number]:10/29/2023 Patient: MELISSA FRASER Provider: Jn Wetzel DPM :1945 A ge:78 Y S ex:Female Date:10/29/2023 Address:[address] [place] [address] [id number] Subjective: * Chief Complaints: * 1 . The patient returns with a painful area on the bottom of her left foot. She has not worn the inserts because they are not convenient and feels that athletic shoes provide enough support. The last debridement gave her 4 weeks of relief but it came back again. * HPI: H PI: Follow Up Visit P atient presents for follow up visit for insole., Patient states their problem is, unchanged, well doing ok Still limping., MA: fausto. * ROS: G eneral / Constitutional: Patient [...] difficulty speaking, dizziness. * Medical History: * Medications: N one * Allergies: M [...] to offload this area * Follow Up: 2 Weeks (Reason: Debride and ablate porokeratosis) * Billing Information: * Visit Code: 98623 Office Visit, Est Pt., Level 3. * Procedure Codes: * Electronic signature of ALYSSIA WETZEL DPM on 05/22/2024 at 02:56 PM CDT Sign off status: Pending * Provider: Jn Wetzel DPM Date: 0 10/29/2023 Generated for Dada harvey/Anna/Mariaa on: 0 05/22/2024 02:56 PM CDT History and Physical Notes * HPI (History of Present Illness) Category Sub-Category Detail Notes Category Not es HPI Follow Up Visit Patient presents for follow up visit for insole., Patient states their problem is, unchanged, well doing ok Still limping., MA: mf Examination Category Sub-Category Detail Notes Category Not [...]
--- OUTSIDE RECORDS SUMMARY | 2024-05-22 14:57 | XMS_ITS | Patient Health Record ---
Author Organization [facility] Address [address] [place] [address] Care Team Providers Care Principal Clerk Name Role Phone Amilcar Zambrano Primary Care Provider Reason For Referral No Information Immunizations Vaccine Route Administration Date Status Comme nts COVID-19 Moderna 1ST IM Intramuscular 03/18/2020 Administered EUA date 0. Screening reviewed and consent signed. Patient tolerated well. COVID-19 Moderna 2nd IM Intramuscular 04/15/2020 Administered Plan Of Treatment No Information Insurance Providers Payer Name Payer Address Payer Phone Subscriber Number Group Number Insured Name Patient Relationship to Insured Coverage Start Date Coverage End Date [facility] [address] [place] [phone] [id number] Chely De Los Santos Self - patient is the insured 1
--- NOTE | 2024-05-22 15:23 | ECG_ITS ---
Test Date: 2024-05-22 16:05:44 Measurements Intervals [place] Rate: 68 P: 90 IA: 145 QRS: 147 QRSD: 86 T: 116 QT: 403 QTc: 429 Interpretive Statements SINUS RHYTHM WITH VENTRICULAR TRIGEMINY LIMB LEAD REVERSAL CONSIDER ANTERIOR INFARCT, AGE INDETERMINATE BASELINE ARTIFACT- I, II, AVR, AVF ABNORMAL ECG No previous ECG available for comparison Electronically Signed On 05-22-2024 16:35:41 CDT by Armando Horowitz D.O.
--- NOTE | 2024-05-22 15:24 | ED.DIZZY ---
HPI - Dizziness General Chief Complaint: Dizziness Stated Complaint: fall, dizzy, N/V Focused HPI: 78-year-old female with history of aortic stenosis s/p TAVR a couple years ago presents to the emergency department via EMS from home for dizziness, head injury and fall that occurred prior to arrival. Patient states she was getting ready to go to lunch when she walked into the kitchen to check that time, became very dizzy and felt like ?everything was moving?. States she felt like she was going to fall down, she then lost her balance and fell into the wall, hit her head but did not lose consciousness. She states she was on the ground and felt like she could not stand up so crawl to her bedroom, got into bed and called 911. Patient did have a few episodes of vomiting. She was given Zofran by EMS with improvement. Upon my evaluation she states the dizziness has largely resolved but she feels generally weak and fatigued. She denies associated chest pain or shortness of breath, vision changes, focal numbness or weakness, abdominal pain, numbness or tingling, neck pain or back pain. She is not anticoagulated but does take a daily baby aspirin. When asked if she has any history of arrhythmia she states she gets ?skipped beats?. Denies history of vertigo. GENERAL: Well-appearing, well-nourished, and in no acute distress. HEAD: Normocephalic, atraumatic. NECK/BACK: No midline cervical, thoracic or lumbar spinous tenderness, crepitus, step-offs or deformities CHEST: Clear to auscultation. ?No respiratory distress. HEART: Regular rate and rhythm.? NEURO: ?Alert and oriented x4. Cranial nerves 2-12 intact. Strength 5/5 in BUE and BLE. Sensation intact throughout. Patient screened in triage and initial orders placed.? ?Additional care and disposition to be based upon?diagnostic testing and treatment. Related Data Home Medications ?Medication ?Instructions ?Recorded ?Confirmed ?Last Taken ?Type aspirin 81 mg tablet,delayed 81 mg PO DAILY 06/21/21 12/27/23 Unknown History release (Adult Low Dose Aspirin) losartan 25 mg tablet 25 mg PO 01/18/22 12/27/23 Unknown History aripiprazole 5 mg tablet 5 mg PO 07/12/22 12/27/23 Unknown History Allergies Allergy/AdvReac Type Severity Reaction Status Date / Time house dust Allergy Unknown sneezing Verified 12/27/23 13:06 mold Allergy Unknown sneezing Verified 12/27/23 13:06 morphine Allergy Unknown paranoid Verified 12/27/23 13:06 Sulfa (Sulfonamide Allergy Unknown Skin Verified 12/27/23 13:06 Antibiotics) Reaction PMFSH Past Medical History Medical History Aortic stenosis 3-22 valve 0.8cm2 Bigeminy Bradycardia Cataracts, bilateral Surgical History Surgical History H/O spinal fusion H/O: knee surgery History of back surgery Hx of breast implants, bilateral Hx of tonsillectomy S/P TAVR (transcatheter aortic valve replacement) Family History Family History Father Diabetes mellitus Family history of elevated blood lipids, Onset Age: 72 Family history of cardiovascular disease, Onset Age: 72 Cerebrovascular accident Mother Patient's mother is in good health Sibling Family history of elevated blood lipids Cerebrovascular accident Grandparent Cerebrovascular accident Other Family history of gout Social History Social History (Updated 12/27/23 @ 13:08 by Nisha Lozano MA) Smoking status: Former smoker (quit 2005) Second hand tobacco smoke exposure: Yes Smoking end date: 02/05/05 Alcohol intake: never Alcohol use details: maybe 2 times a year Substance use: current Substance use type: marijuana Other substance usage details: smokes Last use: yesterday 12/26/23 Do You Feel Safe in your Home?: Yes Lack of Transportation: No Lack of Food: Never True Current Housing: I Have Housing Concerned About Future Housing: No Difficulty Paying Gas/Electric Bills: No Difficulty Paying for Meds: No Currently Unemployed: No Education: Master's Degree or Higher Difficulty w/ Childcare or Family Care: No Gender identity (if verbalized by the patient): Female Course Vital Signs Vital signs: Vital Signs Temperature 97.1 F L 05/22/24 14:55 Pulse Rate 112 H 05/22/24 14:55 Respiratory Rate 16 05/22/24 14:55 Blood Pressure 150/43 H 05/22/24 14:55 Pulse Oximetry 96 05/22/24 14:55 Temperature 97.1 F L 05/22/24 14:55 Pulse Rate 112 H 05/22/24 14:55 Respiratory Rate 16 05/22/24 14:55 Blood Pressure 150/43 H 05/22/24 14:55 Pulse Oximetry 96 05/22/24 14:55 MDM - Dizziness Lab Data 05/22/24 16:07 05/22/24 16:07 Labs: Lab Results 05/22/24 05/22/24 Range/Units 16:07 16:10 WBC 7.8 (4.5-10.0) K/mm3 RBC 5.25 (4.2-5.4) M/mm3 Hgb 15.3 H (12.0-15.0) g/dL Hct 47.8 H (37.0-47.0) % MCV 91.0 (80-100) fl MCH 29.1 (26-34) pg MCHC 32.0 (32-36) g/dl RDW 13.3 (11.5-14.5) % Plt Count 182 (150-375) k/mm3 MPV 10.7 H (7.4-10.4) fl Immature Gran % (Auto) 0.3 (0-0.5) % Neut % (Auto) 84.5 H (45.5-73.1) % Lymph % (Auto) 9.3 L (18.3-44.2) % [place] % (Auto) 4.7 (2.6-8.5) % Eos % (Auto) 0.6 (0-4.4) % Baso % (Auto) 0.6 (0.2-1.2) % Lymph # (Auto) 0.73 L (0.9-3.2) K/mm3 [place] # (Auto) 0.4 (0.1-0.6) K/mm3 Eos # (Auto) 0.1 (0-0.3) K/mm3 Baso # (Auto) 0.1 (0.0-0.1) K/mm3 Abs Immat Gran (auto) 0.02 (0.00-0.031) K/mm3 Absolute Neuts (auto) 6.6 (1.3-6.7) K/mm3 Absolute Nucleated RBC 0.000 (0.0-0.012) K/mm3 Nucleated RBC % 0.0 (0.0-0.2) % PT 13.5 (11.1-14.7) Seconds INR 1.0 APTT 25.5 (22.3-36.8) Seconds Sodium 139 (137-145) mmol/L Potassium 5.0 (3.4-5.0) mmol/L Chloride 102 (98-107) mmol/L Carbon Dioxide 30 (22-30) mmol/L Anion Gap 7 (4-12) mmol/L BUN 14 (7-17) mg/dL Creatinine 0.92 (0.7-1.0) mg/dL Estim Creat Clear Calc 31 ml/min Estimated GFR 59 (59 - ) Glucose 108 (65-110) mg/dL Calcium 9.0 (8.4-10.2) mg/dL Magnesium 2.3 (1.6-2.3) mg/dL Total Bilirubin 0.6 (0.2-1.3) mg/dL AST 25 (14-36) U/L ALT 20 (6-35) U/L Alkaline Phosphatase 74 (38-126) U/L Troponin I < 0.012 (0.000-0.034) ng/mL Total Protein 7.0 (6.3-8.2) g/dL Albumin 4.4 (3.5-5.1) g/dL Lipase 93 (23-300) U/L Urine Color Yellow (Yellow) Urine Appearance Clear (Clear) Urine pH 5.5 (5.0-9.0) Ur Specific [place] 1.019 (1.001-1.035) Urine Protein 1+ H (Negative) mg/dL Urine Glucose (UA) Negative (Negative) mg/dL Urine Ketones Negative (Negative) mg/dL Ur Blood (Man) 2+ H (Negative) Urine Nitrate Negative (Negative) Urine Bilirubin Negative (Negative) Urine Urobilinogen 1.0 (<2.0) mg/dL Leukocyte Esterase Rfl Negative (Negative) QUINN/UL Urine RBC 11-20 H (0-2) /hpf Urine WBC 0-5 (0-3) /hpf Ur Squamous Epith Cells None seen (Few) /hpf Urine Bacteria None seen /hpf Urine Casts 0-2 Discharge Plan Discharge Clinical Impression: Closed head injury Qualifiers: Encounter type: initial encounter Qualified Code(s): S09.90XA - Unspecified injury of head, initial encounter Patient Disposition: Elopement After Seen by Prov Patient Language: Estonian Prescriptions: No Action aspirin [Adult Low Dose Aspirin] 81 mg tablet,delayed release (DR/EC) 81 mg PO DAILY losartan 25 mg tablet 25 mg PO aripiprazole 5 mg tablet 5 mg PO venlafaxine 75 mg tablet 75 mg PO BID Qty: 180 1RF atorvastatin 80 mg tablet 80 mg PO QHS Qty: 90 3RF cholecalciferol (vitamin D3) 1,250 mcg (50,000 unit) capsule See Rx Instructions .ROUTE .COMPLEX Qty: 12 4RF Dose Instruction: TAKE 1 CAPSULE BY MOUTH WEEKLY Rx Instructions: TAKE 1 CAPSULE BY MOUTH WEEKLY ibandronate 150 mg tablet See Rx Instructions .ROUTE .COMPLEX Qty: 3 1RF Dose Instruction: TAKE 1 TABLET BY MOUTH MONTHLY Rx Instructions: TAKE 1 TABLET BY MOUTH MONTHLY Follow-up/Referrals: Elsy Brumfield MD [Primary Care Provider] -
[2024-05-22 16:19] LABS: Basophils Absolute Auto 0.1 K/mm3 (0.0-0.1); Basophils Percent Auto 0.6 % (0.2-1.2); Eosinophils Absolute Auto 0.1 K/mm3 (0-0.3); Eosinophils Percent Auto 0.6 % (0-4.4); Hematocrit 47.8 % (37.0-47.0); Hemoglobin 15.3 g/dL (12.0-15.0); Immature Granulocyte Absolute 0.02 K/mm3 (0.00-0.031); Immature Granulocyte Percent A 0.3 % (0-0.5); Lymphocytes Absolute Auto 0.73 K/mm3 (0.9-3.2); Lymphocytes Percent Auto 9.3 % (18.3-44.2); Mean Corpuscular Hemoglobin 29.1 pg (26-34); Mean Platelet Volume 10.7 fl (7.4-10.4); Monocytes Absolute Auto 0.4 K/mm3 (0.1-0.6); Monocytes Percent Auto 4.7 % (2.6-8.5); Neutrophils Absolute Auto 6.6 K/mm3 (1.3-6.7); Neutrophils Percent Auto 84.5 % (45.5-73.1); Platelet Count Result 182 k/mm3 (150-375); Red Blood Count 5.25 M/mm3 (4.2-5.4); Red Cell Distribution Width 13.3 % (11.5-14.5); White Blood Count 7.8 K/mm3 (4.5-10.0)
[2024-05-22 16:33] LABS: Alanine Aminotransferase 20 U/L (6-35); Albumin Level 4.4 g/dL (3.5-5.1); Alkaline Phosphatase 74 U/L (38-126); Anion Gap 7 mmol/L (4-12); Aspartate Amino Transferase 25 U/L (14-36); Bilirubin,Total 0.6 mg/dL (0.2-1.3); Blood Urea Nitrogen 14 mg/dL (7-17); Carbon Dioxide 30 mmol/L (22-30); Chloride 102 mmol/L (98-107); Estimated CRCL calculation 31 ml/min; Estimated Glomerular Filt Rate 59; Glucose 108 mg/dL (65-110); Lipase 93 U/L (23-300); Magnesium 2.3 mg/dL (1.6-2.3); Sodium 139 mmol/L (137-145)
[2024-05-22 16:35] LABS: Partial Thromboplastin Time 25.5 Seconds (22.3-36.8); Prothrombin Time 13.5 Seconds (11.1-14.7)
[2024-05-22 16:44] LABS: Troponin I < 0.012 ng/mL (0.000-0.034)
[2024-05-22 17:08] LABS: Add Urine Microscopic? YES; Appearance Urine Clear (Clear); Bacteria Urine None Seen /hpf; Bilirubin Urine Negative (Negative); Blood Urine 2+ (Negative); Color Urine Yellow (Yellow); Glucose Urine UA Negative (Negative); Ketones Urine Negative (Negative); Leukocyte Esterase Ur Negative LEU/UL (Negative); Nitrate Urine Negative (Negative); Non Pathogenic Casts 0-2; Protein Urine 1+ mg/dL (Negative); Specific Grav Ur 1.019 (1.001-1.035); Squamous Epithelial Cell Urine None Seen /hpf (Few); WBC Urine 0-5 /hpf (0-3); pH Urine 5.5 (5.0-9.0)
--- NOTE | 2024-05-22 17:18 | PC.NURSE ---
Pt declined to be seen, this RN discussed she is about to be called for a room. Pt states Nah, I am feeling better and I have a ride. I dont want to be seen. Pt ambulated out in NAD.
--- OUTSIDE RECORDS SUMMARY | 2024-05-22 21:07 | XMS_ITS | Clinical Summary ---
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
--- OUTSIDE RECORDS SUMMARY | 2024-05-22 21:07 | XMS_ITS | Continuity of Care Document ---
Author Organization [facility] Address [address] [place] [address] [place] [address] Phone Care Team Providers Care Bander And Cellophaner Machine Name Role Phone Neil PT,MPT,ATC, Jt Unavailable Unavai lable Procedures Procedure Date PT RE-EVALUATION THERAPEUTIC EXERCISES NEUROMUSCULAR RE-ED FUNC ACTIVITY Carrying, Moving And Handling Objects-Jen hauser Carrying, Moving And Handling Objects-Go al Medications Name Dose Freq Route DOC Dec THERAPEUTIC EXERCISES NEUROMUSCULAR RE-ED HOT/COLD PACK THERAPEUTIC EXERCISES NEUROMUSCULAR RE-ED Theraband, per yard THERAPEUTIC EXERCISES NEUROMUSCULAR RE-ED THERAPEUTIC EXERCISES NEUROMUSCULAR RE-ED THERAPEUTIC EXERCISES NEUROMUSCULAR RE-ED THERAPEUTIC EXERCISES NEUROMUSCULAR RE-ED THERAPEUTIC EXERCISES NEUROMUSCULAR RE-ED FUNC ACTIVITY THERAPEUTIC EXERCISES NEUROMUSCULAR RE-ED MANUAL THERAPY FUNC ACTIVITY HOT/COLD PACK THERAPEUTIC EXERCISES NEUROMUSCULAR RE-ED MANUAL THERAPY FUNC ACTIVITY HOT/COLD PACK THERAPEUTIC EXERCISES NEUROMUSCULAR RE-ED MANUAL THERAPY HOT/COLD PACK PT EVALUATION THERAPEUTIC EXERCISES MANUAL THERAPY HOT/COLD PACK Carrying, Moving And Handling Objects-Cu rrent Carrying, Moving And Handling Objects-Go al Medications Name Dose Freq Route DOC Oct Pain Assess Positive -11/14 DOC 2014 BMI Normal and DOC 18-64 yo=18.5-25.0 65 + yo=23.0-30.0 No Falls or 1 Fall w/o Injury Screened f or Fall Risk Functional Outcome Assessmen t documented, deficits identified, treatment plan es Advance Directives Directive Yes / No Effective Date File Name No Information Encounters Encounter Description Practice Location Reason(s) For Visit Diagnoses Date Provider Providers Copied on Encounter [facility] [address] [place] [address], [id number], tel:[phone] [place] No Information 0 5 [place], [place], [place]. Referring Provider: Luis Cruz, Gretel1 [facility] [address], [place], [address]. tel:[phone] [facility] [address] [address], [place], [place], [id number], tel:[phone] [place] No Information 0 [address] [place] [address], [address], [place], [address], . tel:[phone] Referring Provider: Gretel Iraheta1 [facility] [address], [place], [address]. tel:[phone] [facility] [address], [id number], tel:[phone] [place] No Information 5 [facility] [place]. Referring Provider: Gretel Iraheta1 [facility] [address], [place], [address]. tel:[phone] [facility], [address], [place], [place], [id number], [place] tel:[phone] [place] No Information Oct-2 2-201 5 [facility] , [place], [place]. Referring Provider: Romero Iraheta [facility] [address], [place], [address]. tel:[phone] [facility] [address], [place], [place], [id number], [place] tel:[phone] [place] No Information Oct-2 0-201 5 [facility] , [place], [place]. Referring Provider: Romero Iraheta [facility] [address], [place], [address]. tel:[phone], [place], [place], [id number], [place] tel:[phone] [place] No Information Oct-1 6-201 5 [facility] [place] [place]. Referring Provider: Romero Iraheta [facility] [address], [place], [address]. tel:[phone] [facility] [address], [place], [place], [id number], [place] tel:[phone] [place] No Information Oct-1 5-201 5 [facility] , [place], [place]. Referring Provider: Romero Iraheta [facility] [address], [place], [address]. tel:[phone] [facility] [address], [place], [place], [id number], [place] tel:[phone] [place] No Information Oct-0 8-201 5 [facility] , [place], [place]. Referring Provider: Romero Iraheta [facility] [address], [place], [address]. tel:[phone] [facility], [address] [facility] [address], [place], [place], [id number], [place] tel:[phone] [place] No Information 0 5 [place], [place]. Referring Provider: Luis Cruz, Gretel1 [facility] [address], [place], [address]. tel:[phone] [facility], [address] [facility], [place], [place], [id number], [place] tel:[phone] [place] Low back painCervicalgiaT orticollisFibrom yalgiaStiffness of right hip, not elsewhere classifiedMuscle weakness (generalized)Oth er cervical disc degeneration, unsp cervical regionOther intervertebral disc degeneration, lumbar region 0 5 [place]. [address] [place] [address], [address], [place], [place], [facility], [place]. tel: [phone] Referring Provider: Luis Cruz, Gretel1 [facility] [address], [place], [address]. tel:[phone] [facility] [address] [address], [place], [place], [id number], [place] tel:[phone] [place] No Information Oct-2 5 Mupolymilena Estrada. [address] [place] [address], [address], [place], [place], [facility], [place]. tel: [phone] Referring Provider: Luis Cruz, Gretel1 [facility] [address], [place], [address]. tel:[phone] [facility], [address] [facility] [address], [place], [place], [id number], [place] tel:[phone] [place] LumbagoCervicalg ia Sep-2 5 5 [place]. [address] [place] [address], [address], [place], [place], [facility], . tel: [phone] Referring Provider: Luis Cruz, [address] [facility] [address], [place], [address]. tel:[phone] Family History Family Member Type Diagnosis Age At Onset No Information Payers Payer name Insurance type Covered green party ID Authoriza tion(s) No Information Social History Type Description Quantity Date Captured Comments Sex Female Smoking Status No Information Chief Complaint And Reason For Visit No Information Reason For Referral Reason For Referral No Information History Of Present Illness Encounter Date Complaint History Of Prese nt Illness No Information Functional Status Date Functional Assessmen t No Information Instructions Date Instruction Additional Infor mation No Information Assessments Type Assessment Date No Information Patient Care Teams Name Effective Dates (start - stop) Status Members No Information
--- OUTSIDE RECORDS SUMMARY | 2024-05-22 21:07 | XMS_ITS | Clinical Summary ---
Author Organization [facility] [address] Address [address] [place] [address] Care Team Providers Care Tobacco Grower Name Role Phone Elsy Brumfield MD Primary [...] (05/02/2021): Added automatically from request for surgery [id number] PVC's (premature ventricular contractions) 05/02/2021 03/10/2024 Encounters Date Type Department Care Team Description 03/10/2024 11:30 AM PRODUCT MANUFACTURING PROFESSIONAL Office Visit [facility] Medical [facility] Cardiology [address] [place] [address] Rivas Paiz MD Mixed hyperlipidemia [...] on file Legal Sex Female 7:17 PM PRODUCT MANUFACTURING PROFESSIONAL Gender Identity Not on file Sexual Orientation Not on file Obstetrics History Last Filed Vital Signs Vital Sign Reading Time Taken Comments Blood Pressure 139/82 03/10/2024 11:38 AM PRODUCT MANUFACTURING PROFESSIONAL Pulse 52 03/10/2024 11:38 AM PRODUCT MANUFACTURING PROFESSIONAL Temperature 37.3 C (99.2 F) 07/20/2021 12:05 PM CDT Respiratory Rate 18 08/29/2021 9:06 AM CDT Oxygen Saturation 98% 03/10/2024 11:38 AM PRODUCT MANUFACTURING PROFESSIONAL Inhaled Oxygen Concentration - - Weight 55.8 kg (123 lb) 03/10/2024 11:38 AM PRODUCT MANUFACTURING PROFESSIONAL Height 152.4 cm (5') 03/10/2024 11:38 AM PRODUCT MANUFACTURING PROFESSIONAL Body Mass Index 24.02 03/10/2024 11:38 AM PRODUCT MANUFACTURING PROFESSIONAL Plan of Treatment Health Maintenance Due Date [...] 03/21/2021, 2020 Medical Devices Implanted Type Area Hand Sander Device Identifier Shelf Expiration Date Model / Serial / Lot Cummings Vascular Device Clsr Perclose Prostyle Sut-Mediatd Closure-Repair Sys 64965-80 - [id number] Implanted:Qty: 1 on 07/19/2021 by Rivas Paiz MD at [facility] [employer] 1 2772-04 / / Cumm[employer] Vascular Device Clsr Perclose Prostyle Sut-Mediatd Closure-Repair Sys 21589-23 - [id number] Implanted:Qty: 1 on 07/19/2021 by Rivas Paiz MD at [facility] [employer] 1 2772-04 / / [employer] Valve 23mm Aortic Marty 3 Commander Wilkerson Transcatheter Ultra Low Profile [id number] - [id number] - [id number] Implanted:Qty: 1 on 07/19/2021 by Rivas Paiz MD at [facility] [employer] 02/28/2024 [id number] / [id number] / Angio-Seal Vip 6fr Closere Device [id number] - [id number] Implanted:Qty: 1 on 07/19/2021 by Rivas Paiz MD at [facility] 03/07/2022 [id number] / / [id number] Insurance [employer] MEDICARE [facility]IC[facility] Address: [address] [address] [place] [address] [facility] Advance Directives For more information, please contact: [phone] * Full Code (Latest Code Status on File) Date Activated Date Inactivated Comments 05/25/2021 12:30 PM 05/25/2021 9:55 PM Care Teams Tobacco Grower Relationship Specialty Start Date End Date Elsy Brumfield MD PCP - General Family Medicine 02/27/22
--- OUTSIDE RECORDS SUMMARY | 2024-05-22 21:07 | XMS_ITS | Referral Summary ---
Author Organization [facility] [address] [facility] [address] [place] [address] Care Team Providers Care Transit Survey Worker Name Role Phone Elsy Brumfield MD Primary Care Provider + Encounters Date Type Department Care Team Description 03/10/2024 11:30 AM VACCINE CUSTOMER REPRESENTATIVE Office Visit [facility] Medical [facility] Cardiology [address] [facility] [address] [place] [address] Rivas Paiz MD Mixed hyperlipidemia [...] (05/02/2021): Added automatically from request for surgery [id number] PVC's (premature ventricular contractions) 05/02/2021 03/10/2024 Social [...] on file Legal Sex Female 7:17 PM VACCINE CUSTOMER REPRESENTATIVE Gender Identity Not on file Sexual Orientation Not on file Last Filed Vital Signs Vital Sign Reading Time Taken Comments Blood Pressure 139/82 03/10/2024 11:38 AM VACCINE CUSTOMER REPRESENTATIVE Pulse 52 03/10/2024 11:38 AM VACCINE CUSTOMER REPRESENTATIVE Temperature 37.3 C (99.2 F) 07/20/2021 12:05 PM CDT Respiratory Rate 18 08/29/2021 9:06 AM CDT Oxygen Saturation 98% 03/10/2024 11:38 AM VACCINE CUSTOMER REPRESENTATIVE Inhaled Oxygen Concentration - - Weight 55.8 kg (123 lb) 03/10/2024 11:38 AM VACCINE CUSTOMER REPRESENTATIVE Height 152.4 cm (5') 03/10/2024 11:38 AM VACCINE CUSTOMER REPRESENTATIVE Body Mass Index 24.02 03/10/2024 11:38 AM VACCINE CUSTOMER REPRESENTATIVE Plan of Treatment Not on file Medical Devices Implanted Type Area Mattress Weaver Device Identifier Shelf Expiration Date Model / Serial / Lot Cummings Vascular Device Clsr Perclose Prostyle Sut-Mediatd Closure-Repair Sys 84804-74 - [id number] Implanted:Qty: 1 on 07/19/2021 by Rivas Paiz MD at [facility] [employer] Vascular 1 27704-07 / / [employer] V[employer] Device Clsr Perclose Prostyle Sut-Mediatd Closure-Repair Sys 66003-21 - [id number] Implanted:Qty: 1 on 07/19/2021 by Rivas Paiz MD at [facility] [employer] 1 2772-04 / / [employer] Valve 23mm Aortic Marty 3 Commander Wilkerson Transcatheter Ultra Low Profile [id number] - [id number] - [id number] Implanted:Qty: 1 on 07/19/2021 by Rivas Paiz MD at [facility] [employer] 02/28/2024 [id number] / [id number] / Angio-Seal Vip 6fr Closere Device [id number] - [id number] Implanted:Qty: 1 on 07/19/2021 by Rivas Paiz MD at [facility] 03/07/2022 [id number] / / [id number] Insurance [facility] Address: [facility] [address] [place] [address] UHC MEDICARE ADVANTAGE [facility] MEDICARE [facility] Address: [facility] [id number] [place] [address] Advance Directives For more information, please contact: [phone] * Full Code (Latest Code Status on File) Date Activated Date Inactivated Comments 05/25/2021 12:30 PM 05/25/2021 9:55 PM Care Teams Transit Survey Worker Relationship Specialty Start Date End Date Elsy Brumfield MD PCP - General Family Medicine 02/27/22
--- OUTSIDE RECORDS SUMMARY | 2024-05-22 21:07 | XMS_ITS | Encounter Summary ---
Author Organization [facility] Address 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
== END 2024-05-22 21:20 | disposition left against medical advice (07) ==
PROVIDERS: Emergency Provider Physician Assistant; PCP Family Medicine
DX: S09.90XA Unspecified injury of head, initial encounter (principal); I35.0 Nonrheumatic aortic (valve) stenosis; H26.9 Unspecified cataract; Z95.2 Presence of prosthetic heart valve; Z98.1 Arthrodesis status; Z87.891 Personal history of nicotine dependence; W01.198A Fall on same level from slipping, tripping and stumbling with subsequent striking against other object, initial encounter
CPT/HCPCS: 36415; 70450; 71045; 80053; 81001; 83690; 83735; 84484; 85025; 85610; 85730; 93005; 99284

== ENCOUNTER 2024-07-16 16:18 | Outpatient (CLI) | payer MEDICARE, SELFPAY ==
--- NOTE | ~2024-07-16 | US_ITS ---
US thyroid INDICATION: Probable thyroid bump TECHNIQUE: Real-time sonographic images of the thyroid gland were obtained. COMPARISON: No prior studies for comparison. FINDINGS: The right thyroid lobe measures 4.6 x 1.9 x 1.4 cm. The left thyroid lobe measures 2.7 x 1 .3 x 1.7 cm. There is normal echotexture and echogenicity throughout the thyroid gland. There are mul tiple small hypoechoic bilateral thyroid masses, largest customer contact representative mass in the right lobe is ova l solid, hypoechoic, wider than tall, smoothly marginated without echogenic foci measuring 5 x 4 x 5 mm, TR 4. Largest customer contact representative mass in the left lobe measures 5 x 4 x 3 mm and is solid, hypoechoic , wider than tall, smoothly marginated without echogenic foci, TR 4. Normal vascular flow is present. IMPRESSION: 1. Small bilateral thyroid nodules measuring 5 mm or less, consistent with multinodular goiter. No s uspicious masses meet sonographic criteria for biopsy. Reviewed, dictated and finalized at location B. IMPRESSION: 1. Small bilateral thyroid nodules measuring 5 mm or less, consistent with mul tinodular goiter. No suspicious masses meet sonographic criteria for biopsy.
--- OUTSIDE RECORDS SUMMARY | 2024-07-16 18:05 | XMS_ITS | Encounter Summary ---
Author Organization [employer] Address 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
--- OUTSIDE RECORDS SUMMARY | 2024-07-16 18:05 | XMS_ITS | Patient Health Record ---
Author Organization [facility] [employer] Address [address] [place] [address] Care Team Providers Care Power Screwdriver Operator Name Role Phone ALPHONSE RIVERA MD Primary Care Provider Nisha England Unavailable [phone] Hali, Thena Unavailable [phone] Allergies Allergen (clinical drug ingredient) Drug/Non Drug [...] 90 Days Active Vitamin D3 1.25 MG (67742 UT) TAKE 1 CAPSULE BY MOUTH WEEKLY [...] 01/24/2024 Encounters Encounter Location Date Provider Diagnosis [facility] K[facility] [address] [place] [address] 07/26/2023 Thena Hali Bipolar 1 disorder F31.9 and Generalized anxiety disorder F41.1 [facility] [address] [place] [address] 01/24/2024 Thena Hali Bipolar 1 disorder F31.9 ; Generalized anxiety disorder F41.1 and Benign essential HTN I10 Assessments Encounter Date Diagnosis (ICD Code) Assessment Notes Treatment Notes Treatment Clinical Notes Section Notes 07/26/2023 Generalized anxiety disorder (ICD-10 - F41.1) 07/26/2023 Bipolar 1 disorder (ICD-10 - F31.9) 01/24/2024 Generalized anxiety disorder (ICD-10 - F41.1) 01/24/2024 Bipolar 1 disorder (ICD-10 - F31.9) 01/24/2024 Benign essential HTN (ICD-10 - I10) Plan Of Treatment Next Appt Details Provider Name:Nisha Gill , 07/21/2024 02:45:00 PM, [address], [address], [place], [address], Insurance Providers Payer Name Payer Address Payer Phone Subscriber Number Group Number Insured Name Patient Relationship to Insured Coverage Start Date Coverage End Date Aetna Medicare Replaceme nt/Advant age - Ppo [address] [place] [address] [id number] MELISSA SALAZAR Self - patient is the insured Medical (General) History Medical History History ICD Code Problems: Bipolar affective disorder, cu rrent episode mixed Generalized anxiety disorder Mixed bipolar I disorder in partial vinnie ssion Moderate mixed bipolar I disorder Primary insomnia , Surgical History Surgery Date(Month/Year) Procedure on ankle (381024159) 4 pins an d 2 screws 1993 Operative procedure on knee (4256253) 19 90 Spinal fusion for scoliosis (971902078) revision and thoracic to pelvis 1993 Spinal fusion for scoliosis (381407076) total thoracic in 1957 Spinal fusion for scoliosis (213484446) with [place] rods [id number] Xcapsl ctrc rmvl cplx wo ecp (31046) 201 3 Insertion of bilateral breast prostheses (17833386) 1976
--- OUTSIDE RECORDS SUMMARY | 2024-07-16 18:05 | XMS_ITS | Clinical Summary ---
Author Organization [facility] [address] Address [address] [place] [address] Care Team Providers Care Bartender Server Name Role Phone Elsy Brumfield MD Primary [...] (05/02/2021): Added automatically from request for surgery [id number] PVC's (premature ventricular contractions) 05/02/2021 03/10/2024 Surgical History Surgery Date Site/Laterality Comments TONSILLECTOMY [...] Used Date Smoking Tobacco: Former Cigarettes 1 7 - 2006 Smokeless Tobacco: Never Comments:Quit 15 [...] on file Legal Sex Female 7:17 PM SIGNAL SUPERVISOR Gender Identity Not on file Sexual Orientation Not on file Obstetrics History Last Filed Vital Signs Vital Sign Reading Time Taken Comments Blood Pressure 139/82 03/10/2024 11:38 AM SIGNAL SUPERVISOR Pulse 52 03/10/2024 11:38 AM SIGNAL SUPERVISOR Temperature 37.3 C (99.2 F) 07/20/2021 12:05 PM CDT Respiratory Rate 18 08/29/2021 9:06 AM CDT Oxygen Saturation 98% 03/10/2024 11:38 AM SIGNAL SUPERVISOR Inhaled Oxygen Concentration - - Weight 55.8 kg (123 lb) 03/10/2024 11:38 AM SIGNAL SUPERVISOR Height 152.4 cm (5') 03/10/2024 11:38 AM SIGNAL SUPERVISOR Body Mass Index 24.02 03/10/2024 11:38 AM SIGNAL SUPERVISOR Plan of Treatment Health Maintenance Due Date Last Done Comments Depression Screening 1945 Osteoporosis Screening-Bone Density Scan 1945 DTaP/Tdap/Td Vaccine (1 - Tdap) 06/28/1954 Hepatitis B Screening 06/28/1961 Pneumococcal vaccine 65+ (1 of 1 - PCV) 06/28/1993 Zoster Vaccine (1 of 2) 06/28/1993 Well Visit 65+ 06/28/2008 Fall Risk Assessment 07/20/2022 07/20/2021 Covid-19 Vaccine ( - season) 2023 01/19/2021, 04/15/2020, 03/18/2020 Influenza Vaccine (Season Ended) 2024 03/21/19 22, 01/19/2021 Medical Devices Implanted Type Area Digital Forensic Examiner Device Identifier Shelf Expiration Date Model / Serial / Lot Cummings Vascular Device Clsr Perclose Prostyle Sut-Mediatd Closure-Repair Sys 75379-36 - [id number] Implanted:Qty: 1 on 07/19/2021 by Rivas Paiz MD at [facility] Cummings Vascular 1 2773-03 / / Cummings Vascular Device Clsr Perclose Prostyle Sut-Mediatd Closure-Repair Sys 91063-81 - [id number] Implanted:Qty: 1 on 07/19/2021 by Rivas Paiz MD at [facility] [employer] V[employer] 1 2773-03 / / [employer] Valve 23mm Aortic Marty 3 Commander Wilkerson Transcatheter Ultra Low Profile [id number] - [id number] - [id number] Implanted:Qty: 1 on 07/19/2021 by Rivas Paiz MD at [facility] [employer] 02/28/2024 [id number] / [id number] / Angio-Seal Vip 6fr Closere Device [id number] - [id number] Implanted:Qty: 1 on 07/19/2021 by [facility] at [facility]07[facility] [id number] / / [id number] Insurance [facility] MEDICARE UHC MEDICARE ADVANTAGE [facility] MEDIC[facility] Advance Directives For more information, please contact: [phone] * Full Code (Latest Code Status on File) Date Activated Date Inactivated Comments 05/25/2021 12:30 PM 05/25/2021 9:55 PM Care Teams Bartender Server Relationship Specialty Start Date End Date Elsy Brumfield MD PCP - General Family Medicine 02/27/22
--- OUTSIDE RECORDS SUMMARY | 2024-07-16 18:05 | XMS_ITS | Continuity of Care Document ---
Author Organization [employer] Address [address] [place] [address] [place] [address] Phone Care Team Providers Care Mold Machine Operator Name Role Phone Neil PT,MPT,ATC, Jt Unavailable [...] Diagnoses Date Provider Providers Copied on Encounter [facility] [address] [place] [address], [id number], tel:[phone] [place] No Information 0 5 [place], [place], [place]. Referring Provider: Luis Cruz, Gretel1 [facility] [address], [place], [address]. tel:[phone] [facility] [address] [address], [place], [place], [id number], tel:[phone] [place] No Information 0 [address] [place] [address], [address], [place], [address], . tel:[phone] Referring Provider: Gretel Iraheta1 [facility] [address], [place], [address]. tel:[phone] [facility] [address], [id number], tel:[phone] [place] No Information 5 [facility] [place]. Referring Provider: Gretel Iraheta1 [facility] [address], [place], [address]. tel:[phone] [facility], [address], [place], [place], [id number], [place] tel:[phone] [place] No Information Oct-2 2-201 [address] [place] , [place], [place]. Referring Provider: Romero Iraheta [facility] [address], [place], [address]. tel:[phone] [facility] [address], [place], [place], [id number], [place] tel:[phone] [place] No Information Oct-2 0-201 5 [place] , [place], [place]. Referring Provider: Romero Iraheta [facility] [address], [place], [address]. tel:[phone], [place], [place], [address], [place] tel:[phone] [place] No Information Oct-1 6-201 5 [facility] [place] [place]. Referring Provider: Romero Iraheta [facility] [address], [place], [address]. tel:[phone] [facility] [address], [place], [place], [id number], [place] tel:[phone] [place] No Information Oct-1 5-201 5 [place] , [place], [place]. Referring Provider: Romero Iraheta [facility] [address], [place], [address]. tel:[phone] [facility] [address], [place], [place], [address], [place] tel:[phone] [place] No Information Oct-0 8-201 5 [place] , [place], [place]. Referring Provider: Romero Iraheta [facility] [address], [place], [address]. tel:[phone] [facility], [address] [facility] [address], [place], [place], [id number], [place] tel:[phone] [place] No Information 0 5 [place], [place]. Referring Provider: Luis Cruz, rGetel1 [facility] [address], [place], [address]. tel:[phone] [facility], [address] [facility], [place], [place], [id number], [place] tel:[phone] [place] Low back painCervicalgiaT orticollisFibrom yalgiaStiffness of right hip, not elsewhere classifiedMuscle weakness (generalized)Oth er cervical disc degeneration, unsp cervical regionOther intervertebral disc degeneration, lumbar region 0 5 [address] [place] [address], [address], [place], [place], [facility], [place]. tel: [phone] Referring Provider: Luis Cruz, Gretel1 [facility] [address], [place], [address]. tel:[phone] [facility] [address] [address], [place], [place], [id number], [place] tel:[phone] [place] No Information Oct-2 5 Mupolymilena Estrada. [address] [place] [address], [address], [place], [place], [facility], [place]. tel: [phone] Referring Provider: Luis Cruz, Gretel1 [facility] [address], [place], [address]. tel:[phone] [facility], [address] [facility] [address], [place], [place], [id number], [place] tel:[phone] [place] LumbagoCervicalg ia Sep-2 5 5 [address]. [address] [place] [address], [address], [place], [place], [facility], . tel: [phone] Referring Provider: Luis Cruz, [address] [facility] [address], [place], [address]. tel:[phone] Family History Family Member Type Diagnosis Age At Onset No Information Payers Payer name Insurance type Covered democrat ID Authoriza tion(s) No Information Social History [...]
--- OUTSIDE RECORDS SUMMARY | 2024-07-16 18:05 | XMS_ITS | Patient Health Record ---
Author Organization [facility] Address [address] [place], [place] [id number] Care Team Providers Care Hydraulic Lift Driver Name Role Phone Elsy Brumfield Unavailable Unavailable SNOOK ALYSSIA Unavailable [phone] Allergies Allergen (clinical drug ingredient) Drug/Non Drug [...] Location Date Provider Diagnosis [facility] [address] [place] [id number] 07/30/2023 ALYSSIA SNOOK Other hammer toe(s) (acquired), left foot M20.42 ; Acquired keratosis [keratoderma] palmaris et plantaris L85.1 ; Metatarsalgia, left foot M77.42 and Left foot pain M79.672 [facility] [address] [place], [place] [id number] 10/29/2023 ALYSSIA SNOOK Other eccrine sweat disorders L74.8 ; Metatarsalgia, left foot M77.42 and Left foot pain M79.672 [facility] [address] [place], [place] [id number] 11/12/2023 ALYSSIA WETZEL Other eccrine sweat disorders [...] the patient use an emollient such as ajig-gaa-qdsuycx Eucerin cream, Vanicream, or other lotion to [...] Start Date Coverage End Date [address] [place] [phone] [id number] MELISSA SALAZAR Self - patient is the insured
--- OUTSIDE RECORDS SUMMARY | 2024-07-16 18:05 | XMS_ITS | Patient Health Record ---
Author Organization [facility] Address [address] [place] [address] Care Team Providers Care Solderer Dipper Name Role Phone Amilcar Zambrano Primary Care [...] Insured Coverage Start Date Coverage End Date [facility] [address] [place] [address] [id number] Chely De Los Santos Self - patient is the insured 1
--- OUTSIDE RECORDS SUMMARY | 2024-07-16 18:05 | XMS_ITS | Clinical Summary ---
Author Organization [facility] Address [address] [place] [address] Attn: Epic Prelude ADT NEERAJ BELLO [address] Care Team Providers Care Pc Analyst Name Role Phone Unavailable Primary Care Provider Unavailabl e Social History Tobacco Use Types Packs/Day Years Used Date Smoking Tobacco: Never Assessed Comments Unknown Sex and Gender Information Value Date Recorded Sex Assigned at Not on file Legal Sex Female 2:47 AM SKEIN BANDER Gender Identity Not on file Sexual Orientation [...]
--- OUTSIDE RECORDS SUMMARY | 2024-07-16 18:05 | XMS_ITS | Referral Summary ---
Author Organization [facility] [address] Address [address] [place] [address] Care Team Providers Care Picking Table Worker Name Role Phone Elsy Brumfield MD [...] (05/02/2021): Added automatically from request for surgery [id number] PVC's (premature ventricular contractions) 05/02/2021 03/10/2024 Social [...] on file Legal Sex Female 7:17 PM POACHER OPERATOR Gender Identity Not on file Sexual Orientation Not on file Last Filed Vital Signs Vital Sign Reading Time Taken Comments Blood Pressure 139/82 03/10/2024 11:38 AM POACHER OPERATOR Pulse 52 03/10/2024 11:38 AM POACHER OPERATOR Temperature 37.3 C (99.2 F) 07/20/2021 12:05 PM CDT Respiratory Rate 18 08/29/2021 9:06 AM CDT Oxygen Saturation 98% 03/10/2024 11:38 AM POACHER OPERATOR Inhaled Oxygen Concentration - - Weight 55.8 kg (123 lb) 03/10/2024 11:38 AM POACHER OPERATOR Height 152.4 cm (5') 03/10/2024 11:38 AM POACHER OPERATOR Body Mass Index 24.02 03/10/2024 11:38 AM POACHER OPERATOR Plan of Treatment Not on file Medical Devices Implanted Type Area Black Top Paver Operator Device Identifier Shelf Expiration Date Model / Serial / Lot Cummings Vascular Device Clsr Perclose Prostyle Sut-Mediatd Closure-Repair Sys 36703-40 - [id number] Implanted:Qty: 1 on 07/19/2021 by Rivas Paiz MD at [facility] [employer] Vascular 1 2772-04 / / Cummings Vascular Device Clsr Perclose Prostyle Sut-Mediatd Closure-Repair Sys 53947-50 - [id number] Implanted:Qty: 1 on 07/19/2021 by Rivas Paiz MD at [facility] [employer] 1 2772-04 / / [employer] Valve 23mm Aortic Marty 3 Commander Wilkerson Transcatheter Ultra Low Profile [id number] - [id number] - [id number] Implanted:Qty: 1 on 07/19/2021 by Rivas Paiz MD at [facility] [employer] 02/28/2024 [id number] / [id number] / Angio-Seal Vip 6fr Closere Device [id number] - [id number] Implanted:Qty: 1 on 07/19/2021 by Rivas Paiz MD at [facility] 03/07/2022 [id number] / / [id number] Insurance [employer] MEDICARE UHC MEDICARE ADVANTAGE [facility] MEDICARE [facility] MEDIC[facility] Address: [address] [place] [address] Advance Directives For more information, please contact: [phone] * Full Code (Latest Code Status on File) Date Activated Date Inactivated Comments 05/25/2021 12:30 PM 05/25/2021 9:55 PM Care Teams Picking Table Worker Relationship Specialty Start Date End Date Elsy Brumfield MD PCP - General Family Medicine 02/27/22
== END 2024-07-16 16:19 | disposition home or self-care (01) ==
PROVIDERS: PCP Family Medicine; Visit Provider Student in an Organized Health Care Education/Training Program
DX: E04.2 Nontoxic multinodular goiter (principal)
CPT/HCPCS: 76536

== ENCOUNTER 2024-07-25 12:44 | Outpatient (CLI) | payer MEDICARE, SELFPAY | END 2024-07-25 12:45 | disposition home or self-care (01) | LOC: ANHAUDASC 12:45 | PROVIDERS: PCP Family Medicine; Visit Provider Student in an Organized Health Care Education/Training Program | DX: H90.6 Mixed conductive and sensorineural hearing loss, bilateral (principal); R42 Dizziness and giddiness; H74.8X3 Other specified disorders of middle ear and mastoid, bilateral; H93.93 Unspecified disorder of ear, bilateral | CPT/HCPCS: 92557; 92567 ==

== ENCOUNTER 2024-08-27 13:17 | Outpatient (CLI) | payer MEDICARE, SELFPAY ==
--- NOTE | ~2024-08-27 | DEXA_ITS ---
Bone Density Report Name: MELISSA SALAZAR Age: 79 Sex: Female Ethnicity: White Date of : 1945 Indication: postmenopausal osteoporosis; height loss; Referring Provider: ALPHONSE RIVERA Study: Bone densitometry was performed. Exam Date: August 27, 2024 Accession number: [id number] Bone Density: Region BMD T-score Z-score Classification Femoral Neck (Left) 0.573 -2.5 -0.1 Osteoporosis Total Hip (Left) 0.679 -2.2 0.0 Osteopenia Femoral Neck (Right) 0.654 -1.8 0.6 Osteopenia Total Hip (Right) 0.693 -2.0 0.1 Osteopenia Total Hip Mean 0.686 -2.1 0.1 Osteopenia World Health Organization criteria for BMD impression classify patients as: Normal (T-score at or above -1.0), Osteopenia (T-score between -1.0 and -2.5), or Osteoporosis (T-score at or below -2.5). 10-year Fracture Risk: FRAX not reported because: Some T-score for Spine Total or Hip Total or Femoral Neck at or below -2.5 Previous Exams: Region Exam Age BMD T-score BMD Change BMD Change Date g/cm2 vs Baseline vs Previous Total Hip(Left) 08/27/2024 79 0.679 -2.2 -0.139 (-17.0% 0.038 (5.8%)* 02/03/2022 76 0.642 -2.5 -0.177 (-21.6% -0.083 (-11.5% 10/04/2016 71 0.725 -1.8 -0.094 (-11.4% -0.094 (-11.4% 07/10/2012 67 0.819 -1.0 Total Hip(Right) 08/27/2024 79 0.693 -2.0 -0.123 (-15.1% 0.016 (2.3%) 02/03/2022 76 0.677 -2.2 -0.139 (-17.1% -0.102 (-13.0% 10/04/2016 71 0.779 -1.3 -0.038 (-4.6%) -0.038 (-4.6%) 07/10/2012 67 0.817 -1.0 *Denotes significance at 95% confidence level, LSC for Total Hip = 0.027 g/cm2 # Denotes dissimilar scan types or analysis methods Clinical Information Provided by Patient: Has used the following medications: Calcium Patient maximum height was 62.5 Menopause Age: 3 No regular weight bearing exercise Drinks caffeinated beverages Onset of menses at age 11 Number of children 2 Impression: The patient has osteoporosis, based on the Left Femoral Neck T-score. No significant bone loss was observed. Discussion: INCREASED RISK OF FRACTURE. BONE DENSITY IS UNDESIRABLY LOW AT ONE OR MORE SKELETAL SITES, CONSISTENT WITH POSTMENOPAUSAL OSTEOPOROSIS. This patient's lowest T-score meets the World Health Organization's (WHO) criteria for osteoporosis at one or more sites (T-score -2.5 or below). In untreated patients, the risk of osteoporotic fracture increases approximately two-fold for each 1.0 SD decrease in T-score. Low bone density is not the only risk factor for fracture; also consider factors such as patient's age, frailty or poor health, risk of falling, risk of injury, previous osteoporotic fracture, family history of osteoporosis, cigarette smoking, low body weight, etc. Not everyone with low bone mineral density has osteoporosis; osteomalacia and other metabolic bone disorders should also be considered. Patients who have osteoporosis should be evaluated for specific diseases and conditions (secondary causes) that may cause or contribute to bone loss. The [place] Association of Clinical Endocrinologists (AACE) and National Osteoporosis Foundation (NOF) recommend pharmacologic intervention for all postmenopausal women whose T-score is in this range. The patient should follow a healthful lifestyle (good nutrition with adequate calcium and vitamin D, and appropriate weight-bearing exercise). Follow-Up: Consider a repeat BMD and Vertebral Fracture Assessment (VFA) exam in 2 years or sooner if medically necessary, to reassess this patient's status. Reported by: NATALIYA on 08/27/2024 2:01:00 PM. Reviewed, dictated and finalized at location A.
--- OUTSIDE RECORDS SUMMARY | 2024-08-27 13:25 | XMS_ITS ---
Author Organization [facility] Address [facility] [address] Care Team Providers Care Capacitor Repairer Name Role Phone MIGUEL SUTTON, ALPHONSE Primary Care Provider Nisha England Unavailable [phone] REASON FOR VISIT Confirmed Social History Sex Assigned At : Social History Observation Description Sex Assigned At Female Encounters Encounter Location Date Provider Diagnosis [facility] [place] [address] [address] 07/21/2024 Nisha Gill Plan Of Treatment Next Appt Details Provider Name:Enoch pinto, 12/18/2024 01:00:00 PM, [address], [facility], [place], [address], Progress Notes * MELISSA SALAZAR PDOB:[birth year] (79 yo F)Acc No.[id number]:07/21/2024 Reestablishing care Patient: Darinel CELESTEMELISSA Provider: ASHISH LÓPEZ :1945 A ge:79 Y S ex:Female Date:07/21/2024 [address] [id number] Pcp:ALPHONSE RIVERA MD Subjective: * Chief Complaints: * 1 . Confirmed. * Medical History: Objective: * Vitals: Assessment: Plan: * Treatment: * Billing Information: * Visit Code: * Procedure Codes: * Electronic signature of ASHISH Vicente on 08/27/2024 at 01:25 PM CDT Sign off status: Pending * Provider: ASHISH LÓPEZ Date: 0 07/21/2024 Generated for Dada Emanuel on: 0 08/27/2024 01:25 PM CDT
--- OUTSIDE RECORDS SUMMARY | 2024-08-27 13:25 | XMS_ITS | Referral Summary ---
Author Organization [facility] [address] Address [address] [place] [address] Care Team Providers Care Crane Follower Name Role Phone Elsy Brumfield MD Primary [...] (05/02/2021): Added automatically from request for surgery [id number] PVC's (premature ventricular contractions) 05/02/2021 03/10/2024 Social [...] on file Legal Sex Female 7:17 PM SOLAR DESIGN ENGINEER Gender Identity Not on file Sexual Orientation Not on file Last Filed Vital Signs Vital Sign Reading Time Taken Comments Blood Pressure 139/82 03/10/2024 11:38 AM SOLAR DESIGN ENGINEER Pulse 52 03/10/2024 11:38 AM SOLAR DESIGN ENGINEER Temperature 37.3 C (99.2 F) 07/20/2021 12:05 PM CDT Respiratory Rate 18 08/29/2021 9:06 AM CDT Oxygen Saturation 98% 03/10/2024 11:38 AM SOLAR DESIGN ENGINEER Inhaled Oxygen Concentration - - Weight 55.8 kg (123 lb) 03/10/2024 11:38 AM SOLAR DESIGN ENGINEER Height 152.4 cm (5') 03/10/2024 11:38 AM SOLAR DESIGN ENGINEER Body Mass Index 24.02 03/10/2024 11:38 AM SOLAR DESIGN ENGINEER Plan of Treatment Not on file Medical Devices Implanted Type Area Industrial Machinery Mechanic Device Identifier Shelf Expiration Date Model / Serial / Lot Cummings Vascular Device Clsr Perclose Prostyle Sut-Mediatd Closure-Repair Sys 60723-71 - [id number] Implanted:Qty: 1 on 07/19/2021 by Rivas Paiz MD at [facility] [employer]ascular 1 2772-04 / / Cummings Vascular Device Clsr Perclose Prostyle Sut-Mediatd Closure-Repair Sys 57158-54 - [id number] Implanted:Qty: 1 on 07/19/2021 by Rivas Paiz MD at [facility] [employer] 1 2772-04 / / [employer] Valve 23mm Aortic Marty 3 Commander Wilkerson Transcatheter Ultra Low Profile [id number] - [id number] - [id number] Implanted:Qty: 1 on 07/19/2021 by Rivas Paiz MD at [facility] [employer] 02/28/2024 [id number] / [id number] / Angio-Seal Vip 6fr Closere Device [id number] - [id number] Implanted:Qty: 1 on 07/19/2021 by Rivas Paiz MD at [facility] 03/07/2022 [id number] / / [id number] Insurance [employer] MEDICARE UHC MEDICARE ADVANTAGE [facility] MEDICARE [facility] Address: [address] [place] [address] Advance Directives For more information, please contact: [phone] * Full Code (Latest Code Status on File) Date Activated Date Inactivated Comments 05/25/2021 12:30 PM 05/25/2021 9:55 PM Care Teams Crane Follower Relationship Specialty Start Date End Date Elsy Brumfield MD PCP - General Family Medicine 02/27/22
--- OUTSIDE RECORDS SUMMARY | 2024-08-27 13:25 | XMS_ITS ---
Author Organization [facility] [email or web address] Address [address] [place] [address] Care Team Providers Care Biomedical Field Service Engineer Name Role Phone MIGUEL SUTTON, ALPHONSE Primary Care Provider Nisha England Unavailable [phone] Jack, Enoch Unavailable [phone] Allergies Allergen (clinical drug ingredient) Drug/Non Drug Allergy documented on EMR Reaction Allergy Type Onset Date Status Substance with sulfonamide structure and antibacterial mechanism of action (substance) SULFA (SULFONAMIDE ANTIBIOTICS) (uncoded) Unknown Allergy 03/28/2023 Active morphine Morphine Unknown Drug Allergy 03/28/2023 Active REASON FOR VISIT 1 month f/u Medications Medication SIG (Take, Route, Frequency, Duration) Notes Start Date End Date Status Losartan Potassium 25 MG TAKE 1 TABLET ( 25 MG TOTAL) BY MOUTH DAILY. Oral twice a day; Duration: 90 days Active Venlafaxine HCl 75 MG 1 tablet Orally On ce a day; Duration: 90 days Active ARIPiprazole 5 MG 1 tablet Orally Once a day; Duration: 90 days Active Ibandronate Sodium 150 MG TAKE 1 TABLET BY MOUTH MONTHLY Oral; Duration: 90 Days Active Atorvastatin Calcium 80 MG TAKE 1 TABLET BY MOUTH EVERY DAY Oral; Duration: 90 days Active Aspirin 81 81 MG 1 tablet Orally Once a day Active Vitamin D3 1.25 MG (84291 UT) TAKE 1 CAPSULE BY MOUTH WEEKLY Oral; Duration: 84 Days Active Social History Sex Assigned At : Social History Observation Description Sex Assigned At Female Vital Signs Blood pressure systolic 150 mm Hg 08/22/19 25 Blood pressure diastolic 80 mm Hg 025 Heart Rate 92 /min 08/21/2024 Height 61.00 in 08/21/2024 Weight 126 lbs 08/21/2024 BMI 23.8 kg/m2 08/21/2024 Height-cm 154.94 cm 08/21/2024 Weight-kg 57.15 kg 08/21/2024 Encounters Encounter Location Date Provider Diagnosis [facility] [employer] [facility] [address] [place] [address] 08/21/2024 Enoch Jack Generalized anxiety disorder F41.1 ; Bipolar 1 disorder F31.9 ; Cannabis use, uncomplicated F12.90 and Benign essential HTN I10 Assessments Encounter Date Diagnosis (ICD Code) Assessment Notes Treatment Notes Treatment Clinical Notes Section Notes 08/21/2024 Generalized anxiety disorder (ICD-10 - F41.1) well controlled, continue current therapy 08/21/2024 Bipolar 1 disorder (ICD-10 - F31.9) well controlled, continue current therapy 08/21/2024 Cannabis use, uncomplicated (ICD-10 - F12.90) smokes cannabis daily Both Abilify and THC/CBD are metabolized by CY and CYP2D6 liver enzymes. Cannabis may inhibit or induce these enzymes, potentially affecting Abilify blood levels Abilify works on dopamine receptors (D2/D3 partial agonist). THC may increase dopamine release, which could: Reduce the effectiveness of Abilify in some individuals Increase the risk of psychotic-like reactions in sensitive people 08/21/2024 Benign essential HTN (ICD-10 - I10) Plan Of Treatment Medication Medication Name Sig Start Date Stop Date Notes Venlafaxine HCl 75 MG 1 tablet Orally On ce a day; Duration: 90 days ARIPiprazole 5 MG 1 tablet Orally Once a day; Duration: 90 days Treatment Notes Assessment Notes Cannabis use, uncomplicated smokes cannabis daily Both Abilify and THC/CBD are metabolized by CY and CYP2D6 liver enzymes. Cannabis may inhibit or induce these enzymes, potentially affecting Abilify blood levels Abilify works on dopamine receptors (D2/D3 partial agonist). THC may increase dopamine release, which could: Reduce the effectiveness of Abilify in some individuals Increase the risk of psychotic-like reactions in sensitive people Next Appt Details Follow Up: 4 Months, Reason: f/u bipolar d/o Provider Name:Enoch pinto, 12/18/2024 01:00:00 PM, [address], [address], [place], [address], Progress Notes * MELISSA SALAZAR PDOB:[birth year] (79 yo F)Acc No.[id number]:08/21/2024 Transfer of Care from [facility] Patient: MELISSA FRASER Provider: ASHISH PARK :1945 A ge:79 Y S ex:Female Date:08/21/2024 [facility] [facility] Pcp:ALPHONSE RIVERA MD Subjective: * Chief Complaints: * 1 . 1 month f/u. * HPI: D epression screening: PHQ-9 L ittle interest or pleasure in doing things?Several days F eeling down, depressed, or hopeless N ot at all T rouble falling or staying asleep, or sleeping too much N ot at all F eeling tired or having little energy M ore than half the days P oor appetite or overeating N ot at all F eeling bad about yourself or that you are a failure, or have let yourself or your family down N ot at all T rouble concentrating on things, such as reading the newspaper or watching television S everal days M oving or speaking so slowly that other people could have noticed; or the opposite, being so fidgety or restless that you have been moving around a lot more than usual N ot at all T houghts that you would be better off or of hurting yourself in some way N ot at all T otal Score 4 I nterpretation M inimal Depression H istory of Presenting Problem: BP normal MIPS Slums testing MIPS diagnosis of HTN. Medication Side Effects d enies. Andres/Hypomania n o andres since being on abilify. Psychosis n o hx psychosis. Suicidal ideation d enies. Memory S LUMS= 26. advance care planning discuss advance care planning discussDepression screening doneHere to establish care. P ast Psychiatric Hospitalizations: Social hx: retired, lives alone, has stable source of income, uses marijuana daily Legal hx: denied Past psychiatric hx- bipolar disorder Hx ECT/TMS/esketamine- denied Past [facility] admissions/IOP/PHP: denied Previous suicide attempts: denied Previous self-harming: denied Supplements: denied Substance use hx: daily marijuana use Nicotine: 2 packs a day for 40 years, quit in 2006 Alcohol: denied. F unctional Status: Functional Status Assessment D ate of last completed Functional Status Assessment: 0 08/21/2024 F all Risk Assessment: T wo or more falls without injury in the past year P ast Psychiatric Medications: lithium- didn't like, bupropion - andres. * Medical History: P roblems: Bipolar affective disorder, current episode mixed, Generalized anxiety disorder, Mixed bipolar I disorder in partial remission, Moderate mixed bipolar I disorder, Primary insomnia, Stenosis of left carotid artery (Onset: 08/29/2021), Essential hypertension (Onset: 03/10/2024), Mixed hyperlipidemia (Onset: 05/02/2021). * Social History: M igrated Social History: M igrated Social History: Alcohol Intake: Occasional 12/09/2019,Tobacco Years: Former smoker 12/09/2019,Smoking Status: 43 03/28/2023. * Medications: T aking Venlafaxine HCl 75 MG Tablet TAKE 1 TABLET BY MOUTH TWICE DAILY 90 DAYS Orally daily , Taking ARIPiprazole 5 MG Tablet 1 tablet Orally Once a day , Taking Aspirin 81 81 MG Tablet Delayed Release 1 tablet Orally Once a day , Taking Vitamin D3 1.25 MG (24785 UT) Capsule TAKE 1 CAPSULE BY MOUTH WEEKLY Oral , Taking Ibandronate Sodium 150 MG Tablet TAKE 1 TABLET BY MOUTH MONTHLY Oral , Taking Atorvastatin Calcium 80 MG Tablet TAKE 1 TABLET BY MOUTH EVERY DAY Oral , Taking Losartan Potassium 25 MG Tablet TAKE 1 TABLET (25 MG TOTAL) BY MOUTH DAILY. Oral twice a day , Medication List reviewed and reconciled with the patient * Allergies: S ULFA (SULFONAMIDE ANTIBIOTICS): Allergy - Onset Date 03/28/2023, Morphine: Allergy - Onset Date 03/28/2023. Objective: * Vitals: B P:150/80mm Hg, HR:92/min, Wt:126lbs, Wt-k.15 kg, Ht: 61.00 in, Ht-cm: 154.94 cm, BMI:23.8Index, Body Surface Area: 1.57. * Examination: P sychiatry: Appearance: w ell-groomed, well-nourished, .... Affect / mood: a ppropriate, full range. Attention: g ood. Attitude: c ooperative. Suicidal ideation: n one. Memory status: n o impairment noted. Degree of awareness of surroundings: w ithin normal limits.? Delusions: n o. Hallucinations: n o. Insight: g ood. Intellectual functioning: n o impairment noted. Judgement: g ood. Orientation: a wake, alert and oriented x 3. Perceptual disorders: n o perceptual disorder noted. Psychomotor activity: w ithin normal range. Speech / language: a ppropriate pitch/modulation, clear and coherent, normal rate, volume, and articulation (RVR), proper grammar used. Thought content: a ppropriate. Thought process: i ntact. Assessment: * Assessment: 1. B ipolar 1 disorder - F31.9 (Primary) N otes :well controlled, continue current therapy 2 . G eneralized anxiety disorder - F41.1 N otes :well controlled, continue current therapy 3 . C annabis use, uncomplicated - F12.90 4 . B enign essential HTN - I10 Plan: * Treatment: 2. C annabis use, uncomplicated Notes: smokes cannabis daily Both Abilify and THC/CBD are metabolized by CY and CYP2D6 liver enzymes. Cannabis may inhibit or induce these enzymes, potentially affectingAbilify blood levels Abilify works on dopamine receptors (D2/D3 partial agonist). THC may increase dopamine release, which could: Reduce the effectiveness of Abilify in some individuals Increase the risk of psychotic-like reactions in sensitive people * Procedure Codes: 1 036F TOBACCO NON-USER, 20157 BEHAV ASSMT W/SCORE & DOCD/STAND INSTRUMENT * Preventive Medicine: Counseling: A dvance Care Planning Date of last Advance Care Planning:?08/21/2024 ____ MIPS Type of advance care directives: D iscussed with patient , does not have AD,Do not Intubate,Do Not Resuscitate (DNR) Screenings: D epression screening Have you had a recent depression screening? Y es * Follow Up: 4 Months (Reason: f/u bipolar d/o) * Billing Information: * Visit Code: 01981 OFFICE OUTPATIENT VISIT 25 MINUTES DETAILED HISTORY AND EXAM/MODERATE MEDICAL DECISION MAKING. * Procedure Codes: 1036F TOBACCO NON-USER. 68876 BEHAV ASSMT W/SCORE & DOCD/STAND INSTRUMENT. * Electronic signature of ASHISH Alcantara on 08/27/2024 at 01:24 PM CDT Sign off status: Pending * Provider: ASHISH PARK Date: 0 08/21/2024 Generated for Dada harvey/Anna/eTransmitting on: 0 08/27/2024 01:24 PM CDT History and Physical Notes * HPI (History of Present Illness) Category Sub-Category Detail Notes Category Not es History of Presenting Problem Suicidal ideation denies advance care planjayeshn g discuss advance care planning discuss Depression screening done Here to establish care. Psychosis no hx psychosis Memory SLUMS= 26 Medication Side Effects denies Andres/Hypomania no andres since being on abilify Past Psychiatric Hospitalizations Social hx: retired, lives alone, has stable source of income, uses marijuana daily Legal hx: denied Past psychiatric hx- bipolar disorder Hx ECT/TMS/esketamine- denied Past [facility] admissions/IOP/PHP: denied Previous suicide attempts: denied Previous self-harming: denied Supplements: denied Substance use hx: daily marijuana use Nicotine: 2 packs a day for 40 years, quit in 2006 Alcohol: denied Depression screening PHQ-9 Little inte rest or pleasure in doing things: Several days Feeling down, depressed, or hopeless: No t at all Trouble falling or staying asleep, or sl eeping too much: Not at all Feeling tired or having little energy: M ore than half the days Poor appetite or overeating: Not at all Feeling bad about yourself o r that you are a failure, or have let yourself or your family down: Not at all Trouble concentrating on thi ngs, such as reading the newspaper or watching television: Several days Moving or speaking so slowly that other people could have noticed; or the opposite, being so fidgety or restless that you have been moving around a lot more than usual: Not at all Thoughts that you would be b nakul off or of hurting yourself in some way: Not at all Total Score: 4 Interpretation: Minimal Depression Functional Status Functional Status Assessment D ate of last completed Functional Status Assessment:: 08/21/2024 Fall Risk Assessment:: Two or more falls without injury in the past year Examination Category Sub-Category Detail Notes Category Not es Psychiatry Appearance: well-groomed, well-nourished , ... Attitude: cooperative Psychomotor activity: within normal rang e Attention: good Degree of awareness of surroundings: wit hin normal limits Orientation: awake, alert and billy ented x 3 Affect / mood: appropriate, full ra nge Speech / language: appropriate pitch/mo dulation, clear and coherent, normal rate, volume, and articulation (RVR), proper grammar used Insight: good Judgement: good Thought process: intact Thought content: appropriate Perceptual disorders: no perceptual diso rder noted Suicidal ideation: none Intellectual functioning: no impairment noted Memory status: no impairment noted Delusions: no Hallucinations: no
--- OUTSIDE RECORDS SUMMARY | 2024-08-27 13:25 | XMS_ITS | Clinical Summary ---
Author Organization [facility] [address] Address [address] [place] [address] Care Team Providers Care Cleat Maker Name Role Phone Elsy Brumfield MD Primary [...] (05/02/2021): Added automatically from request for surgery [id number] PVC's (premature ventricular contractions) 05/02/2021 03/10/2024 Surgical [...] on file Legal Sex Female 7:17 PM HOSPITALITY COORDINATOR Gender Identity Not on file Sexual Orientation Not on file Obstetrics History Last Filed Vital Signs Vital Sign Reading Time Taken Comments Blood Pressure 139/82 03/10/2024 11:38 AM HOSPITALITY COORDINATOR Pulse 52 03/10/2024 11:38 AM HOSPITALITY COORDINATOR Temperature 37.3 C (99.2 F) 07/20/2021 12:05 PM CDT Respiratory Rate 18 08/29/2021 9:06 AM CDT Oxygen Saturation 98% 03/10/2024 11:38 AM HOSPITALITY COORDINATOR Inhaled Oxygen Concentration - - Weight 55.8 kg (123 lb) 03/10/2024 11:38 AM HOSPITALITY COORDINATOR Height 152.4 cm (5') 03/10/2024 11:38 AM HOSPITALITY COORDINATOR Body Mass Index 24.02 03/10/2024 11:38 AM HOSPITALITY COORDINATOR Plan of Treatment Health Maintenance Due Date [...] 22, 01/19/2021 Medical Devices Implanted Type Area Surveillance Systems Analyst Device Identifier Shelf Expiration Date Model / Serial / Lot [employer] Device Clsr Perclose Prostyle Sut-Mediatd Closure-Repair Sys 63067-73 - [id number] Implanted:Qty: 1 on 07/19/2021 by Rivas Paiz MD at [facility] [employer] 1 2773-03 / / [employer] Device Clsr Perclose Prostyle Sut-Mediatd Closure-Repair Sys 88292-27 - [id number] Implanted:Qty: 1 on 07/19/2021 by Rivas Paiz MD at [facility] [employer] 1 2773-03 / / [employer] Valve 23mm Aortic Marty 3 Commander [employer]kerson Transcatheter Ultra Low Profile [id number] - [id number] - [id number] Implanted:Qty: 1 on 07/19/2021 by Rivas Paiz MD at [facility] [employer] 02/28/2024 [id number] / [id number] / Angio-Seal Vip 6fr Closere Device [id number] - [id number] Implanted:Qty: 1 on 07/19/2021 by Rivas [facility]iz MD at [facility] 03/07/2022 [id number] / / [id number] Insurance [facility] MEDICARE UHC MEDICARE ADVANTAGE [facility] MEDICARE Advance Directives For more information, please contact: [phone] * Full Code (Latest Code Status on File) Date Activated Date Inactivated Comments 05/25/2021 12:30 PM 05/25/2021 9:55 PM Care Teams Cleat Maker Relationship Specialty Start Date End Date Elsy Brumfield MD PCP - General Family Medicine 02/27/22
--- OUTSIDE RECORDS SUMMARY | 2024-08-27 13:25 | XMS_ITS | Encounter Summary ---
Author Organization [employer] Address [address] [place] [address] Care Team Providers Care Cementer Hand Name Role Phone Unavailable Primary Care Provider Unavailabl e Encounter Details Date Type Department Care Team (Late st Contact Info) Description 06/16/1999 Outpatient Historical [facility] Michel Vasquez MD [address] [place] [address] Other specified examination (Primary Dx) Social History Tobacco Use Types Packs/Day Years Used Date Smoking Tobacco: Never Assessed Comments Unknown Sex and Gender Information Value Date Recorded Sex Assigned at Not on file Legal Sex Female 2:47 AM BARTENDER Gender Identity Not on file Sexual Orientation Not on file documented as of this encounter Plan of Treatment Not on file documented as of this encounter Visit Diagnoses Diagnosis Other specified examination- Primary documented in this encounter
--- OUTSIDE RECORDS SUMMARY | 2024-08-27 13:25 | XMS_ITS | Patient Health Record ---
Author Organization [facility] Address [address] [facility] [address] [place], [place] [id number] Care Team Providers Care Wood Setter Name Role Phone Elsy Brumfield Unavailable Unavailable SNITZELK ALYSSIA Unavailable [phone] Allergies Allergen (clinical drug ingredient) Drug/Non Drug [...] Location Date Provider Diagnosis [facility] [place] [address] [place] [address] [id number] 10/29/2023 ALYSSIA SNOOK Other eccrine sweat disorders L74.8 ; Metatarsalgia, left foot M77.42 and Left foot pain M79.672 [facility] [address] [place] [address] [phone] 11/12/2023 ALYSSIA SNOOK Other eccrine sweat disorders L74.8 [...] Coverage Start Date Coverage End Date [employer] [address] [place] [id number] [phone] [id number] MELISSA SALAZAR Self - patient is the insured
--- OUTSIDE RECORDS SUMMARY | 2024-08-27 13:25 | XMS_ITS | Clinical Summary ---
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
== END 2024-08-27 13:18 | disposition home or self-care (01) ==
LOC: ANHIMG 13:19
PROVIDERS: PCP Family Medicine; Visit Provider Family Medicine
DX: M81.0 Age-related osteoporosis without current pathological fracture (principal); M85.89 Other specified disorders of bone density and structure, multiple sites; Z78.0 Asymptomatic menopausal state
CPT/HCPCS: 77080